=== PATIENT | female | born 1945 | race Caucasian/White ===

== ENCOUNTER 2024-06-05 23:25 | Inpatient (IN) | payer MEDICARE, SELFPAY ==
[2024-06-05 23:46] VITALS: BMI 24.0
[2024-06-06] VITALS (10 sets, daily range): BP systolic 125–151; BP diastolic 52–82; BMI 24.0
--- NOTE | 2024-06-06 | PTCARENOTE ---
received verbal report from Susan RN. Pt arrived to IMU from [facility]. Pt aaox3. AV paced on monitor. VSS. Heparin running at 1400u/hr. NS running at 75 mL/hr. admission assessment completed and pt oriented to unit (see worklist).
Pt resting in bed with call deshpande in reach.
--- NOTE | 2024-06-06 00:06 | HPS.HSE ---
Family Physician
-
Family Physician: NO INTERVIEW UNKNOWN
Chief Complaint
-
Transfer from [facility] secondary to NSTEMI, recent sepsis obstructing ureteral stent
History of Present Illness
79-year-old female transferred from [facility], where she underwent cardiac cath today 06/05 via right radial wrist by for NSTEMI type II ME with high sensitive troponin levels of 3850 on 05/29/2022 this cath was held off from
her admission on 05/29 due to severe sepsis from obstructing ureteral stent. She had echo showing grade 1 diastolic dysfunction with the entire apex abnormal per echo report. Her cath showed proximal LAD 75% occlusion mid 30 to 40%, circumflex 80
to 90% mid/distal, there is an old distal circumflex stent,the RCA there is distal 50, 60, 40% occlusion. They were unable to stent the mid and distal circumflex at the previous hospital. The patient denies chest pain shortness of breath dizziness
or diaphoresis at any point during her hospitalization. She currently denies any chest pain, palpitations, shortness breath, cough, fever, chills, headache, abdominal pain, nausea, vomiting, diarrhea. The patient tells me yesterday 06/04/2024 she
spiked a temperature of 101F oral and was given Tylenol. She has denied fevers since, although today 06/05/2024 her white count did spike to 14.5 per hospitals report it appears that her prior physicians might have been unaware of this single
temperature elevation on 06/04/2024 and it is not documented in daily. She has no new complaints however we will repeat CBC, blood cultures x 2, Hernandez cath urine and nephrostomy tube cultures. She was admitted there on 1123 severe sepsis growing
ESBL, E. coli secondary to an encrusted ureteral stent that was in place for 1 year. She required a left nephrostomy tube placement on 06/01 which urine culture grew Proteus Mirabella's that was pansensitive and her Zosyn was switched to ertapenem.
She was also evaluated by vascular surgery who recommended eventual fem- femoral bypass as an outpatient but to continue her current Pletal. She had labs 11:26 AM showing a hemoglobin of 9.2 I am not sure of her prior and an elevated WBC count
14.5 per
Rodrigo Doan's notes. She has past medical history of NSTEMI type II ME 05/31/2024, distal circumflex stent 7 years ago at [place], prior ureteral stent 2022 left-sided, ESBL, E. coli in urine from encrusted ureteral stent 05/29/2024, left
nephrostomy 06/01/2024 growing Proteus Mirabilis',, PAD was seen by vascular surgery recommended at some point fem-femoral bypass as outpatient, chronic neuropathy bilateral legs, hypertension, hyperlipidemia, pacemaker placed 2022 at [facility]ospital, cervical cancer with radiation 20 years ago SBO with colonic rupture requiring colostomy January 2022
Medical History
Past Medical History
Past Medical History: Reports Other
Additional Past Medical History:
NSTEMI type II ME 05/31/2024
CAD/distal circumflex stent 7 years ago at [place]
prior ureteral stent 2022 left-sided
ESBL, E. coli in urine from encrusted ureteral stent 05/29/2024
left nephrostomy 06/01/2024 placed due to obstructive prior ureteral stent growing Proteus Mirabilis
PAD was seen by vascular surgery recommended at some point fem-femoral bypass as outpatient
chronic neuropathy bilateral legs
hypertension
hyperlipidemia
pacemaker placed 2022 at [facility]
cervical cancer with radiation 20 years ago
SBO with colonic rupture requiring colostomy January 2022
Past Surgical History: Reports Other
Additional Past Surgical History:
[facility]
Tonsillectomy
Appendectomy
Small bowel obstruction with rupture requiring colostomy January 2022
Tubal ligation
Social History
Tobacco: Non-smoker
Alcohol: None
Drug: None
Personal:
Living: With Family
Family History
Family History: Other (Mother history of ME, hypertension, age 76, father age 80 history of CAD patient has no siblings)
Allergies / Home Medications
Allergies reflects when Allergies were last updated in [employer].
Home Medications with original date entered in [employer]
Allergy/Medication List:
Allergies
Allergy/AdvReac Type Severity Reaction Status Date / Time
No Known Allergies Allergy Unverified 06/06/24 00:06
Home Medications
acetaminophen 325 mg tablet 650 mg PO Q6H PRN mild pain/fever >100.4/SUTTON 06/05/24
aspirin 81 mg tablet,delayed release 81 mg PO DAILY 06/05/24
atorvastatin 80 mg tablet 80 mg PO HS 06/05/24
cilostazol 100 mg tablet 100 mg PO BID 06/05/24
clonidine 0.2 mg/24 hr weekly transdermal patch (Oesopudm-ABM-0) 0.2 mg transdermal QWEEK 06/05/24
collagenase clostridium histo. 250 unit/gram topical ointment (Santyl) 1 applic topical DAILY 06/05/24
ertapenem 1 gram solution for injection 1 g IM Q24H 06/05/24
gabapentin 100 mg capsule (Neurontin) 100 mg PO HS 06/05/24
heparin (porcine) 5,000 unit/mL injection syringe 5,000 unit SC Q12H 06/05/24
lisinopril 5 mg tablet 5 mg PO DAILY 06/05/24
metoprolol succinate 25 mg tablet,extended release 24 hr (Toprol XL) 25 mg PO DAILY 06/05/24
mirtazapine 15 mg tablet (Remeron) 7.5 mg PO DAILY 06/05/24
nifedipine 30 mg tablet,extended release 24 hr (Procardia XL) 30 mg PO DAILY 06/05/24
nifedipine 30 mg tablet,extended release 24 hr (Procardia XL) 30 mg PO DAILY 06/05/24
Review of Systems
-
History Source: Patient and Transfer Record
A 12 point ROS was completed and negative except as noted: Yes
Constitutional: Denies Fever, Fatigue or Chills
EENT: Denies Sore Throat, Mouth Swelling or Runny Nose
Respiratory: Denies Cough, Hemoptysis or Trouble Breathing
Cardiac: Denies Chest Pain, Diaphoresis, Palpitations or Syncope
Abdomen/GI: Reports Other (Colostomy present on admission); Denies Abdominal Pain, Nausea, Vomiting, Diarrhea, Constipated, Bloody Stools or Black Stools
: Reports Hernandez (Draining yellow in color) and Other (Left-sided nephrostomy tube draining thin pink in color)
Musculoskeletal: Denies Joint Pain or Edema
Skin: Denies Itching or Rash
Neurological: Denies Dizzy or Headache
Endocrine: Reports No Symptoms
Hematologic/Lymphatic: Reports No Symptoms
Psych: Reports Calm
Physical Exam
Vital Signs
Vital Signs
Temp
99.3 F
06/05/24 23:34
Physical Exam
General: Comfortable and Conversant; No Pain, Fever or Chills
HEENT: NormoCephalic, Anicteric, Moist mucous membranes, PERRLA, [place] Conjunctivae and No Ptosis
Respiratory: Clear; No Wheezes, Rales or Rhonchi
Cardiac: S1/S2, Regular Rhythm (Paced on monitor occasionally at bedside) and Other (Pacemaker present left upper chest wall); No Murmur, Rub, Gallop, Peripheral Edema or JVD
Breast: Deferred by me
GI: Soft, Non Tender, Non Distended, Normal Bowel Sounds and Other (Colostomy present)
Rectal: Deferred by Provider
Genito-urinary: Hernandez (Present on admission draining yellow in color) and Nephrostomy Tubes (Left-sided draining thin strawberry tinged in color)
Musculoskeletal: No Clubbing, No Cyanosis and No Edema
Skin: Warm, Dry and IV/Catheter Site (Right arm midline placed at [facility] on 06/03/2024 due to infiltration of saline and antibiotics right upper extremity and left upper extremity)
Neuro: AO x 3, No Motor Deficits, Cranial Nerves Intact and No Sensory Deficits; No Slurred Speech, Facial Droop, Tremors or Sedated
Psych: Calm
Data Reviewed
-
Lab Data: Labs Reviewed by me (From [facility])
Impression/Plan
-
Impression/plan:
Admit to IMU
#NSTEMI�type II ME on 05/31/2024
Hide high sensitive troponin 3850 on 05/31 at [facility]
-At that time was unable to undergo cardiac cath given her severe sepsis from pyelonephritis left side
-Patient was placed on IV heparin drip
-Cardiac cath on 1126 by via right wrist showed LAD�proximal 75% occlusion, mid 30, 40%, circumflex 80 to 90% mid and distal occlusion with old stent in the distal circumflex and RCA distal 50, 60, 40% occlusions the physician was unable
to place stent in the mid and distal aspects of the circumflex and patient was transferred to [place] for further management
-Continue IV heparin drip currently running at 14 units/h
-Consult Cardiology�CBC
-Monitor for any chest pain
-IV NSS 75 cc/h continue from prior
Check CBC, CMP in a.m.
-Trend troponin
-EKG in a.m.
2D echo
Echo at [facility] 06/05/2024 echo showing grade 1 diastolic dysfunction with the entire apex abnormal per echo report, reported preserved EF by hospital
#CAD
#History prior distal circumflex stent approximately 7 years ago [facility]
-Continue aspirin 81 mg daily, atorvastatin 80 mg at bedtime, Toprol XL 25 mg daily
#Acute leukocytosis
WBC 14.5 no shift currently afebrile on admission 06/05/2024
But reported temperature 101.F yesterday 06/04/2024 by patient
-Will repeat CBC along with blood cultures x 2, urine culture from Hernandez catheter and urine culture from nephrostomy tube
#Mild anemia per labs 06/04/2024
Hemoglobin 9.2 on 06/04/2024 at [facility]
-Will check CBC in a.m. will also obtain type and screen#
#Severe sepsis from ESBL, E. coli in urine/obstructive uropathy due to old encrusting ureteral stent stent left-sided from 1 year ago
Was admitted on 1120 [facility]
-Hernandez catheter was placed
-Patient was on IV Zosyn
#Obstructive uropathy due to encrusted left-sided ureteral stent 1-year-old
#Left nephrostomy tube was placed on 06/01 with cultures growing pansensitive Proteus Mirabilis
Antibiotics were changed from Zosyn to Ertapenem on 06/01 to run until 06/09 then consideration for oral antibiotics per infectious disease
-Left nephrostomy tube currently draining thin pink-tinged drainage
creat 0.9/bun 15 on 06/04/2024 at [facility]
-Consult infectious disease
#PAD
#Peripheral neuropathy
Patient was seen by vascular surgery was recommended she have eventual femorofemoral bypass but not urgent
-Continue gabapentin 300 mg at bedtime for her chronic neuropathy
-Continue Pletal 100 mg twice daily
#History of IV infiltration of saline and antibiotics left upper extremity right upper extremity at [facility]
#Midline was placed in right upper extremity 06/03
#HTN�benign
-Continue Catapres 0.2 mg patch transdermal weekly on Wednesdays
-Continue metoprolol XL 25 mg daily
-Continue Procardia XL 60 mg p.o. daily
#HLD
-Continue atorvastatin 80 mg at bedtime
Cholesterol panel on 05/31/2024 from [facility]
Total cholesterol 194
Glycerides 131
HDL 43, LDL 125
Cholesterol, non-HDL 151
#Cervical cancer with radiation 20 years ago
DVT prophylaxis
Continue IV heparin drip
Full code
--- NOTE | 2024-06-06 00:37 | W.PN.UPDATE ---
Update Note
Progress Note Update
Patient seen in conjunction with POT RELINER. I agree with her findings on history and physical. I concur with the assessment and plan unless stated otherwise.
Patient is a 79 y.o with h/o nephrolithiasis s/p stenting (L) 1 year ago, CAD s/p PCI to left circ, HTN presenting as transfer from [facility] for evaluation for likely total occlusion of left circumflex on attempted PCI there in setting
of NSTEMI. Patient presented to the [facility] on 05/29 with sepsis and was found to have pyelonephritis with obstruction/hydronephrosis on the left kidney. She was cultured and had medical resuscitation. Urology consulted. Patient also
found to have elevated troponin (> 3000 on sensitive scale) but was septic at the time and intervention was delayed. Urology evaluated patient, found old encrusted stent which they deferred removal in the septic setting. A left nephrostomy tube
was placed. Patient treated with abx (zosyn initially). Blood culture with strep dysgalactiae in one bottle, urine culture with ESBL E.coli and proteus. Nephrostomy tube grew senstivie proteus. Patient was transitioned to Ertapen. She was
medically managed on heparin initially for the NSTEMI, echo showed apical wall motion anomaly and when patient was stable enough, taken to cath-lab. L circumflex occlusion found but could not be intervened upon. CBC cardiology informed and patient
transferred for definitive management. Patient with known PAD evaluated by vascular for claudication, no intervention inpatient. See POT RELINER note for details of past medical and surgical histories.
On seeing patient today, she was awake, alert, oriented x 3 and in no acute distress. Denies ever having chest pains since her admission. She has a urinary catheter draining yellow urine and a left nephrostomy tube draining pink colored urine.
Lungs were clear, CV regular w/o r/m/g. No edema. Normal abdominal exam w/ colostomy bag.
1. CAD - Known CAD w/ prior PCI. Now with new L circ occlusion, transferred by cardiology for intervention as unable to provide definitive treatment at [facility]. Chest pain free on heparin gtt.
- imu admit
- continue aspirin statin
- continue heparin gtt
- trend troponin
- possibly going for procedure in the morning, npo except meds
- cardiology consult
2. ID - Pyelonephritis complicated by infected/encrusted old left ureteral stent s/p left nephrostomy tube placement. Blood culture strep dysgalactiae, Urine Cx ESBL E.coli/Proteus, Nephrostomy pansensitvie proteus. Initially on Zosyn and switched
to ertapenem.
- continue ertapenem till stop date of 06/09
- ID consult for further abx regimen
- blood cx, urine culture and nephrostomy tube cx
3. PAD -
- follow up with vascular as outpatient
- continue asa/statin/cilstazol
- gabapentin
4. Obstructive uropathy - encrusted stent s/p nephrostomy tube. Had GUILHERME now resolved
- maintain woods till ready for d/c. Can be removed once medically stable
- nephrostomy tube removal and management of old stent per outpatient urology follow up
- monitor i/o and renal function
5. HTN
- continue current lisinopril, nifedipine
DVT PPX - on heparin
Code status - full code
[2024-06-06] MEDS: NSS 1000 IV ×2 (01:35→14:18)
[2024-06-06 04:14] LABS: % Basophils 0.2 % (0-2); % Eosinophils 1.4 % (0-6); % Immature Granulocytes 1.9 % (0-0.5); % Lymphocytes 15.3 % (20.5-51.1); % Monocytes 7.1 % (1.7-9.3); % Neutrophils 74.1 % (42.2-75.2); Absolute Eosinophils 0.2 10^3/uL (0-0.7); Absolute Immature Granulocytes 0.2 10^3/uL (0-0.05); Absolute Lymphocytes 1.7 10^3/uL (1.2-3.4); Absolute Monocytes 0.8 10^3/uL (0.1-0.6); Absolute Neutrophils 8.3 10^3/uL (1.4-6.5); Hematocrit 30.9 % (37.0-47.0); Hemoglobin 9.8 g/dL (12.0-16.0); Mean Corp Hgb Conc. 31.7 g/dL (33.0-37.0); Mean Corpuscular Hgb 28.7 pg (27.0-31.0); Mean Corpuscular Volume 90.6 fL (81.0-99.0); Mean Platelet Volume 9.6 fL (7.4-10.4); Nucleated Red Blood Cells % 0 %; Platelet Count 206 10^3/uL (130-400); Red Blood Cell Count 3.41 10^6/uL (4.20-5.40); Red Cell Dist. Width 14.7 % (11.5-14.5); White Blood Cell Count 11.3 10^3/uL (4.8-10.8)
[2024-06-06 04:41] LABS: APTT > 200 Sec (23.4-35.0)
[2024-06-06 04:45] LABS: Troponin I 0.064 ng/ml
[2024-06-06 05:26] LABS: ALT (SGPT) 21 U/L (0-35); AST (SGOT) 28 U/L (14-36); Albumin 2.8 g/dl (3.5-5.0); Alkaline Phosphatase 40 U/L (38-126); Blood Urea Nitrogen 11 mg/dl (7-17); Calcium 8.2 mg/dl (8.4-10.2); Carbon Dioxide 24 mmol/L (22-30); Chloride 106 mmol/L (98-107); Estimated Creatinine Clearance 64 ml/min; Glucose 105 mg/dl (70-99); HDL Cholesterol 40 mg/dl; LDL Cholesterol, Calculated 84 mg/dl; Potassium 4.2 mmol/L (3.5-5.1); Sodium 139 mmol/L (135-145); Total Bilirubin 0.5 mg/dl (0.2-1.3); Total Cholesterol 151 mg/dl (50-199); Total Protein 6.1 g/dl (6.3-8.2); Triglyceride 138 mg/dl (10-149); Very Low Density Lipoprotein 27 mg/dl (0-30); eGFR > 60.00
--- NOTE | 2024-06-06 06:31 | CON.CAR ---
Consultation
Consultation Request
Date/Time Consultation Requested: 06/06/2024
Date/Time Consultation Performed: 06/06/2024 630
Requesting Provider: Hospitalist
Performing Provider: Dr. Archuleta
Reason for Consultation: Coronary artery disease recent and NSTEMI
Medical History
-
History of Present Illness:
Patient presents as transfer from [facility] onto the hospitalist service
79-year-old male patient has a history of coronary artery disease left circumflex stent, pacemaker, encrusted ureteral stent, peripheral arterial disease (femorofemoral bypass), hypertension, hypercholesterolemia, colostomy who was admitted to [facility] with sepsis/urosepsis, (bc positive for strep dysgalactiae ? contaminent and urine polymicrobial ESBL, ecoli and proteus,)bacteremia but did not grow in urine, , left nephrostomy tube placement 06/01/2024. She had a NSTEMI and under
ultimately underwent a cardiac catheterization by Dr. Pedro. Patient was felt to have type II NJ and was noted to have new wall motion abnormality. Full echo report not available but some notes suggest that apex appeared abnormal. Cardiac
catheterization showed LAD moderate to severe calcification 75% left circumflex moderate to severe calcification 80 to 90% mid to distal. Previous distal circumflex stent 20-30% ISR, RCA 50 and 60% stenoses unsuccessful attempted PCI to the mid to
distal circumflex. Unable to cross with balloon by report small dissection was noted which was felt to be stable. Patient transferred for additional management.
Patient denies ever having chest pain during admission no complaints of shortness of breath patient is comfortable without current complaints.
Right radial cath site feels fine. She has PAD and had revascularization surgery approximately 8 months ago
Past medical history
Pacemaker
Left circumflex stenting
Ureteral stent
Left nephrostomy
PAD. prior revascularization surgery about 8 months ago per her report ( suspect fem-fem bypass)
Neuropathy
Hypertension
Hypercholesterolemia
cervical cancer with previous radiation
SBO a colonic rupture requiring colostomy 2021
Past Medical History
Past Medical History: Other (As noted)
Allergies / Home Medications
Allergy/AdvReac Type Severity Reaction Status Date / Time
No Known Allergies Allergy Unverified 06/06/24 00:06
�Medication �Instructions �Recorded �Confirmed �Type
acetaminophen 325 mg tablet 650 mg PO Q6H PRN mild pain/fever 06/05/24 06/06/24 History
>100.4/SUTTON
aspirin 81 mg tablet,delayed 81 mg PO DAILY 06/05/24 06/06/24 History
release
atorvastatin 80 mg tablet 80 mg PO HS 06/05/24 06/06/24 History
cilostazol 100 mg tablet 100 mg PO BID 06/05/24 06/06/24 History
clonidine 0.2 mg/24 hr weekly 0.2 mg transdermal QWEEK 06/05/24 06/06/24 History
transdermal patch (Enofcalk-WXR-3)
collagenase clostridium histo. 250 1 applic topical DAILY 06/05/24 06/06/24 History
unit/gram topical ointment (Santyl)
ertapenem 1 gram solution for 1 g IM Q24H 06/05/24 06/06/24 History
injection
gabapentin 100 mg capsule 100 mg PO HS 06/05/24 06/06/24 History
(Neurontin)
heparin (porcine) 5,000 unit/mL 5,000 unit SC Q12H 06/05/24 06/06/24 History
injection syringe
lisinopril 5 mg tablet 5 mg PO DAILY 06/05/24 06/06/24 History
metoprolol succinate 25 mg 25 mg PO DAILY 06/05/24 06/06/24 History
tablet,extended release 24 hr
(Toprol XL)
mirtazapine 15 mg tablet (Remeron) 7.5 mg PO DAILY 06/05/24 06/06/24 History
nifedipine 30 mg tablet,extended 30 mg PO DAILY 06/05/24 06/06/24 History
release 24 hr (Procardia XL)
nifedipine 30 mg tablet,extended 30 mg PO DAILY 06/05/24 06/06/24 History
release 24 hr (Procardia XL)
Review of Systems
-
All other systems: Negative unless noted
Physical Exam
Vital Signs
Temp Pulse Resp BP Pulse Ox
98.7 F 79 18 128/77 94
06/06/24 04:05 06/06/24 04:05 06/06/24 04:05 06/06/24 04:05 06/06/24 04:05
Lab Results
06/06/24 03:59
06/06/24 03:59
Troponin I 0.064 ng/ml H* 06/06/24 03:59
Physical Exam
General: No Apparent Distress
HEENT: Normocephalic, Anicteric and Other (PEERL EOMI)
Respiratory: Other (No wheezes rales or rhonchi)
Cardiac: Regular Rhythm and Murmur (none)
GI: Non Tender, Normal Bowel Sounds and Other (Colostomy. No mass)
Musculoskeletal: No Clubbing, No Cyanosis, No Edema and Other (bilat femoral area scars from prior surgery )
Skin: Warm and Other (No rashes noted, left foot with dressing onwhat patient reports as chronic wound, nonhealing)
Neuro: Awake, Alert and Oriented
Psych: Other (Radial cath site fine)
Impression / Plan
-
Coronary artery disease/NSTEMI
-Distant history of left circumflex stenting
-NSTEMI during recent hospitalization at [facility]
-Cardiac catheterization 06/05/2024 with multivessel coronary artery disease as noted above with culprit lesion suspected to be left circumflex. Unsuccessful attempted PCI of left circumflex
-Continue medical therapy including aspirin,
-Interventional cardiology will determine best course of treatment. Patient will be assessed by interventional cardiology. Assessment for possible complex PCI. In meantime would continue with medical therapy which includes aspirin and heparin.
Currently not on DAPT
.
Hypercholesterolemia high intensity statin
Hypertension. Stable continue current therapy
Left nephrostomy.. Patient patient with history of ureteral stent.. Recent admission with sepsis. Now with nephrostomy. Additional management as directed by primary team
.
pacemaker
PAD
Colostomy
Data Reviewed
-
EKG: Report Reviewed by me
Radiology: Report Reviewed by me
Medical Tests (Nuc Med, Echo etc): Report Reviewed by me
Labs: Labs Reviewed by me
--- NOTE | 2024-06-06 08:27 | W.PN.HOSP.TC ---
Today's Communication/Plan
-
Resume diet
Continue antibiotics
ID consult
PT/OT
Wound care
Assessment / Plan
Assessment / Plan
Gen-AAOx3, NAD
HEENT-NC, AT, anicteric, clear oral mm
Neck-supple
CV-reg, no M, +S1/S2
Lungs-clear B/L
Abd-soft, NT, ND
Ext-no edema
Musculoskeletal-no cyanosis, clubbing, left foot dressing
Skin-warm and dry
Neuro-grossly non-focal
Psych-calm, cooperative
NSTEMI/CAD -history of left circumflex stenting. Admitted to [facility] May 29 for sepsis, UTI. Found to have an acute CO. Underwent cardiac catheterization 06/05 for multivessel CAD. Culprit lesion suspected to be left
circumflex. Attempt at PCI but unsuccessful. Small dissection noted by report. Subsequently transferred to [facility] for further intervention by Dr. Ballesteros. Discussed case with Dr. Archuleta this morning, okay to resume diet pending
cardiology decision on further intervention including possible rotational atherectomy.
Sepsis due to UTI/pyelonephritis -underwent nephrostomy tube placement at [facility]. Source of sepsis likely due to encrusted left ureteral stent, which was originally placed 2 years ago in [facility]. Lost to follow-up by
urology. Her urologist is located in [facility]. She plans to her urologist after discharge for stent removal. Currently on IV ertapenem. Infectious disease consulted. Blood culture and [facility] positive for strep and
dysgalactiae, urine culture ESBL E. coli/Proteus. Nephrostomy culture showed pansensitive Proteus.
Still has Hernandez catheter in place.
Essential hypertension -stable.
Hyperlipidemia -continue atorvastatin.
Normocytic anemia -unknown acuity, etiology. Hemoglobin 9.8, monitor for now.
PAD -underwent lower extremity revascularization about 8 months ago with subsequent left foot wound. Consult wound care.
PPM
Colostomy
Full code
Consult PT/OT
Anticipated Discharge: > 48 hours
Subjective/Interval History
-
Date of Service: June 06, 2024
Patient seen and examined. No complaints. Asking for ice water.
Objective Data
-
Labs:
Laboratory Results
06/06/24 06/06/24
03:59 12:45
WBC 11.3 H
Hgb 9.8 L
Hct 30.9 L
Plt Count 206
APTT > 200 H* Pending
Sodium 139
Potassium 4.2
Chloride 106
Carbon Dioxide 24
BUN 11
Creatinine 0.7
Glucose 105 H
Calcium 8.2 L
Total Bilirubin 0.5
AST 28
ALT 21
Alkaline Phosphatase 40
Vital Signs:
Vital Signs
Temp Pulse Resp BP Pulse Ox
98.2 F 74 17 146/69 94
06/06/24 07:49 06/06/24 06:00 06/06/24 06:00 06/06/24 06:00 06/06/24 06:00
I&O
06/05/24 06/06/24 06/07/24
06:59 06:59 06:59
Output Total 850 / 850
Balance -850 / -850
Review of Systems
-
History Source: Patient
All other systems: Reviewed and negative
[2024-06-06] MEDS: ASPIR LOW (ENTERIC COATED) 81 MG PO (08:52)
[2024-06-06] MEDS: PROCARDIA XL (EXTENDED RELEASE) 30 MG PO (08:52)
[2024-06-06] MEDS: PLETAL 100 MG PO ×2 (08:52→20:12)
[2024-06-06] MEDS: TOPROL XL 25 MG PO (08:53)
[2024-06-06] MEDS: ZESTRIL 5 MG PO (08:53)
[2024-06-06] MEDS: REMERON 7.5 MG PO (08:53)
[2024-06-06] MEDS: SANTYL OINTMENT TOPICAL (11:13)
[2024-06-06] MEDS: INVANZ 60 MG IV (11:13)
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
[2024-06-06] MEDS: HEPARIN 25000 UNITS/250 ML IV (14:18)
--- NOTE | 2024-06-06 14:21 | CM ---
CM consult placed. It was for advanced directives. CM introduced self and role. CM confirmed that patient had indeed asked for advanced directive information. CM went over packet and explained one portion is life decision making and one part was to
appoint a specific person to be her advocate if she is not able make her own decisions. Patient verbalized understanding and was handed the packet.
CM encouraged patient to read the first page, which contained very important information in layman's terms.
[2024-06-06 14:57] LABS: APTT 150.7 Sec (23.4-35.0)
[2024-06-06] MEDS: LIPITOR 80 MG PO (20:12)
[2024-06-06] MEDS: NEURONTIN 100 MG PO (20:12)
[2024-06-06 20:24] LABS: Hepatitis C Antibody Negative (Negative)
[2024-06-06 22:23] LABS: APTT 102.9 Sec (23.4-35.0)
[2024-06-07] VITALS (15 sets, daily range): BP systolic 131–151; BP diastolic 52–82; PULSE 91; O2SAT 96; BMI 23.6
[2024-06-07] MEDS: NSS 1000 IV (02:48)
[2024-06-07 05:05] LABS: % Basophils 0.2 % (0-2); % Eosinophils 2.1 % (0-6); % Immature Granulocytes 1.7 % (0-0.5); % Lymphocytes 15.6 % (20.5-51.1); % Monocytes 6.8 % (1.7-9.3); % Neutrophils 73.6 % (42.2-75.2); Absolute Eosinophils 0.2 10^3/uL (0-0.7); Absolute Immature Granulocytes 0.2 10^3/uL (0-0.05); Absolute Lymphocytes 1.5 10^3/uL (1.2-3.4); Absolute Monocytes 0.7 10^3/uL (0.1-0.6); Absolute Neutrophils 7.3 10^3/uL (1.4-6.5); Hematocrit 26.6 % (37.0-47.0); Hemoglobin 8.5 g/dL (12.0-16.0); Mean Corpuscular Volume 90.8 fL (81.0-99.0); Mean Platelet Volume 9.3 fL (7.4-10.4); Nucleated Red Blood Cells % 0 %; Platelet Count 226 10^3/uL (130-400); Red Blood Cell Count 2.93 10^6/uL (4.20-5.40); Red Cell Dist. Width 14.5 % (11.5-14.5); White Blood Cell Count 9.9 10^3/uL (4.8-10.8)
[2024-06-07 05:28] LABS: Blood Urea Nitrogen 14 mg/dl (7-17); Estimated Creatinine Clearance 56 ml/min; Glucose 107 mg/dl (70-99)
[2024-06-07 05:29] LABS: ALT (SGPT) 21 U/L (0-35); AST (SGOT) 23 U/L (14-36); Albumin 2.3 g/dl (3.5-5.0); Alkaline Phosphatase 39 U/L (38-126); Calcium 7.8 mg/dl (8.4-10.2); Carbon Dioxide 25 mmol/L (22-30); Chloride 109 mmol/L (98-107); Potassium 3.8 mmol/L (3.5-5.1); Sodium 139 mmol/L (135-145); Total Bilirubin 0.3 mg/dl (0.2-1.3); Total Protein 5.3 g/dl (6.3-8.2); eGFR > 60.00
--- NOTE | 2024-06-07 08:10 | W.PN.HOSP.TC ---
Today's Communication/Plan
-
Stop IV fluids
PT/OT
Await cardiology input
Assessment / Plan
Assessment / Plan
Gen-AAOx3, NAD
HEENT-NC, AT, anicteric, clear oral mm
Neck-supple
CV-reg, no M, +S1/S2
Lungs-clear B/L
Abd-soft, NT, ND
Ext-no edema
Musculoskeletal-no cyanosis, clubbing, left foot dressing
Skin-warm and dry
Neuro-grossly non-focal
Psych-calm, cooperative
NSTEMI/CAD -history of left circumflex stenting. Admitted to [facility] May 29 for sepsis, UTI. Found to have an acute RI. Underwent cardiac catheterization 06/05 for multivessel CAD. Culprit lesion suspected to be left
circumflex. Attempt at PCI but unsuccessful. Small dissection noted by report. Subsequently transferred to [facility] for further intervention by Dr. Ballesteros. Plan of care pending cardiology decision on further intervention including
possible rotational atherectomy.
Sepsis due to UTI/pyelonephritis -underwent nephrostomy tube placement at [facility]. Source of sepsis likely due to encrusted left ureteral stent, which was originally placed 2 years ago in [facility]. Lost to follow-up by
urology. Her urologist is located in [facility]. She plans to her urologist after discharge for stent removal, appointment scheduled for this Monday, will likely need to reschedule.. Currently on IV ertapenem. Infectious disease
consulted. Blood culture and [facility] positive for strep and dysgalactiae, urine culture ESBL E. coli/Proteus. Nephrostomy culture showed pansensitive Proteus.
Still has Hernandez catheter in place.
Essential hypertension -stable.
Hyperlipidemia -continue atorvastatin.
Normocytic anemia -unknown acuity, etiology. Hemoglobin trending down, 8.5 today. No evidence of bleeding. Monitor hemoglobin. Stools are brown.
PAD -underwent lower extremity revascularization about 8 months ago with subsequent left foot wound. Consult wound care.
PPM
Colostomy
Full code
Consult PT/OT
Stop IV fluids.
Anticipated Discharge: > 48 hours
Subjective/Interval History
-
Date of Service: June 07, 2024
Patient seen and examined. No complaints.
Objective Data
-
Labs:
Laboratory Results
06/06/24 06/07/24 06/07/24
22:05 04:46 11:40
WBC 9.9
Hgb 8.5 L
Hct 26.6 L
Plt Count 226
APTT 102.9 H 129.0 H Pending
Sodium 139
Potassium 3.8
Chloride 109 H
Carbon Dioxide 25
BUN 14
Creatinine 0.8
Glucose 107 H
Calcium 7.8 L
Total Bilirubin 0.3
AST 23
ALT 21
Alkaline Phosphatase 39
Vital Signs:
Vital Signs
Temp Pulse Resp BP Pulse Ox
97.6 F 85 8 140/67 94
06/07/24 03:21 06/07/24 06:00 06/07/24 06:00 06/07/24 06:00 06/07/24 06:00
I&O
06/06/24 06/07/24 06/08/24
06:59 06:59 06:59
Intake Total 900 / 900
Output Total 850 / 850 1100 / 1100
Balance -850 / -850 -200 / -200
Review of Systems
-
History Source: Patient
All other systems: Reviewed and negative
[2024-06-07] MEDS: PLETAL 100 MG PO ×2 (09:41→20:02)
[2024-06-07] MEDS: ZESTRIL 5 MG PO (09:41)
[2024-06-07] MEDS: PROCARDIA XL (EXTENDED RELEASE) 30 MG PO (09:41)
[2024-06-07] MEDS: REMERON 7.5 MG PO (09:42)
[2024-06-07] MEDS: ASPIR LOW (ENTERIC COATED) 81 MG PO (09:43)
[2024-06-07] MEDS: SANTYL OINTMENT 1 APPLIC TOPICAL (09:43)
[2024-06-07] MEDS: TOPROL XL 25 MG PO (09:43)
[2024-06-07] MEDS: INVANZ 60 MG IV (09:54)
--- NOTE | 2024-06-07 10:38 | W.PN.ID1 ---
Date of Service
Date of Service: June 07, 2024
Today's Communication
- close follow up with her urologist - has an appointment already scheduled for monday - for now I have advised her to discuss with cardiology, I suspect she may be able to make this appointment pending cardiology input
Assessment / Plan
Pyelonephritis and Complicated UTI due to ESBL E coli and Proteus
Strep Dysgalactiae bacteremia - not sustained
Encrusted L ureteral stent; s/p nephrostomy tube placement
GUILHERME - resolved
Pacemaker
Colostomy
- blood cultures x2 no growth to date
- agree with ertapenem, eventual transition to oral bactrim planned would continue through 06/16
- no objection to surgical procedures from ID perspective; would consider her to be low risk for infectious complications
- close follow up with her urologist - has an appointment already scheduled for monday - for now I have advised her to discuss with cardiology, I suspect she may be able to make this appointment pending cardiology input
Chief Complaint
-: UTI
Subjective / Review of Systems
afebrile
bp stable
tolerating current abx
Vital Signs / Physical Exam
Vital Signs
Vital Signs
Temp Pulse Resp BP Pulse Ox
98.3 F 100 8 141/81 94
06/07/24 07:15 06/07/24 09:43 06/07/24 06:00 06/07/24 09:43 06/07/24 06:00
Physical Exam
Constitutional: No Acute Distress
Cardiovascular: Regular Rate
Pulmonary: Symmetric and Non Labored
Gastrointestinal: Non Distended
Skin: Dry; Negative Rash or Jaundice
Neurological: Awake
Psychological: Calm
Objective Data
Lab Data
Lab Results
06/07/24 04:46
06/07/24 04:46
APTT 129.0 Sec (23.4-35.0) H 06/07/24 04:46
Estimated Creat Clear 56 ml/min 06/07/24 04:46
Total Bilirubin 0.3 mg/dl (0.2-1.3) 06/07/24 04:46
AST 23 U/L (14-36) 06/07/24 04:46
ALT 21 U/L (0-35) 06/07/24 04:46
Alkaline Phosphatase 39 U/L (38-126) 06/07/24 04:46
Most recent labs reviewed.
Micro Results:
06/06/24 01:38 MRSA Screen - Final
Nose No Methicillin Resistant Staphylococcus aureus isolated.
06/06/24 03:58 Blood Culture - Preliminary
Blood/Venous No Growth in 24 hours- Final report to follow
06/06/24 14:20 Blood Culture - Pending
Blood/Venous
--- NOTE | 2024-06-07 11:28 | WOUNDNOTE ---
[facility] RN note: Patient admitted with sepsis secondary to UTI and pyelonephritis, NSTEMI
See H&P for complete history.
PMH: Left Achilles wound for over 1 year, per patient report. She thinks she obtained wound from a shoe. Patient follows with construction checker at [facility] weekly. Patient has PAD and underwent a lower extremity revascularization 8 months ago at
[facility]. Patient also has a history of colostomy, HTN, and anemia.
Wound Location and type/assessment: Patient admitted with left Achilles wound and left foot dorsal wound. Patient has VN services from and wears an open back shoe for off-loading of Achilles. The Achilles wound is pink, moist and hypergranular.
This RN suggested applying alginate to wound but patient would like to continue with the Santyl as ordered by her [employer] D[employer] Helper for both wounds. The dorsal foot wound is pink and shallow. She is not sure how she obtained this wound but said it was
'newer.' She explained that every other treatment that has been tried tends to worsen wound and Santyl helps both wounds remain stable. Patient also admitted with stage 1 PI and reports sitting alot at home. She ambulates with rolling walker at
home. Right heel intact.
Appetite: Fair
Pressure redistribution devices in place: Centrella Max Air, air cushion in chair. Off-load heels with air cushion or pillow under calf when in bed.
Plan: Local wound care provided to left Achilles and left dorsal foot wound as ordered. Air cushion applied to chair. SHALOM Irwin will apply sacral silicone border foam to sacrum. Instructed patient to use air or gel cushion at home to off-load
sacrum. Patient instructed to change position and stand and ambulate to protect sacrum at home. . Will confirm orders with hospitalist and update nurse. Updated care plan and will follow as needed.
Note to case management of equipment requested for discharge:
Recommend follow up at wound care center upon discharge.
[2024-06-07] MEDS: VISBIOME 2 CAP PO (11:49)
--- NOTE | 2024-06-07 12:01 | W.PN.CD ---
Today's Communication / Plan
-
continue medical therapy
update EF on echo
npo p midnight Monday
monitor hgb
cautiously continue hep gtt
Impression / Plan
-
Coronary artery disease/NSTEMI
-Distant history of left circumflex stenting
-NSTEMI during recent hospitalization at [facility]
-Cardiac catheterization 06/05/2024 with multivessel coronary artery disease as noted above with culprit lesion suspected to be left circumflex. Unsuccessful attempted PCI of left circumflex
-Interventional cardiology planning for complex PCI on Monday. In meantime would continue with medical therapy which includes aspirin, heparin, beta-gareth and DORA inhibitor. Currently not on DAPT.
-Will update focus echo study of EF given complication during procedure.
Anemia: On heparin drip, will need to monitor intensively. Recent catheterization was done from the right radial artery. This is well-healed. She denies any signs or symptoms of active bleeding.
-Monitor closely given heparin drip, workup per medicine
.
Hypercholesterolemia high intensity statin
Hypertension. Stable continue current therapy
Left nephrostomy.. Patient patient with history of ureteral stent.. Recent admission with sepsis. Now with nephrostomy. Additional management as directed by primary team
.
pacemaker
PAD-bilateral femoral bypasses. Continue cilostazol
Colostomy
Echo report from 05/31/2024 hypokinetic apex, EF 50-55%, RV normal size and function,
Physical Exam
Vital Signs/Labs
Vital Signs
Temp Pulse Resp BP Pulse Ox
98.3 F 100 8 141/81 94
06/07/24 07:15 06/07/24 09:43 06/07/24 06:00 06/07/24 09:43 06/07/24 06:00
06/06/24 06/07/24 06/08/24
06:59 06:59 06:59
Actual Weight 69.4 kg 68.4 kg
06/07/24 04:46
06/07/24 04:46
APTT 129.0 Sec (23.4-35.0) H 06/07/24 04:46
Triglycerides 138 mg/dl (10-149) 06/06/24 03:59
LDL Cholesterol, Calc 84 mg/dl 06/06/24 03:59
VLDL Cholesterol, Calc 27 mg/dl (0-30) 06/06/24 03:59
HDL Cholesterol 40 mg/dl 06/06/24 03:59
LAB Results
06/06/24
03:59
Troponin I 0.064 H*
Physical Exam
Constitutional: No acute distress
Cardiovascular: Rhythm & rate is regular, Pedal edema is absent, JVD pressure is normal, Systolic murmur absent and Rhythm/rate is irregular
Respiratory: Respiratory effort normal, Lungs clear to auscul., Wheeze Absent, Crackles Absent and Rhonchi Absent
Other: Cath Site (RRA site well healed, no hematoma, normal cap refill)
Data Reviewed
-
Date of Service: June 07, 2024
EKG: Other (tele sinus pvcs)
--- NOTE | 2024-06-07 12:19 | WOUNDNOTE ---
LEFT ACHILLES WOUND
--- NOTE | 2024-06-07 12:20 | WOUNDNOTE ---
LEFT DORSAL FOOT
[2024-06-07 13:10] LABS: APTT 170.1 Sec (23.4-35.0)
--- NOTE | 2024-06-07 13:23 | PTCARENOTE ---
Assumed care of patient this morning. She is aaox3. Pt has a left nephrostomy tube that is draining blood tinged urine, site dressing changed. Pt has a colostomy, emptied this morning, stool is soft. Wound care on left foot was performed by wound
care. Pt has Heparin infusing into R PICC. Assessment, care and VS as charted.
--- NOTE | 2024-06-07 15:00 | CM ---
Addendum entered by Paty Vang RN 06/07/24 15:13:
inquired about paratransit services in [facility]- advised him to go online and apply.
Original Note:
Patient from [facility] with Hx colostomy, left foot wound, reent PR/cath/PCI & nephrostomy tube. Room air. Receiving IV Abx, Heparin gtt. Seen by wound care nurse. PT Eval; requires assist of 2, unsteady on feet, recommend skilled
rehab. OT recommends HH.
Spoke with patient's Enrique;
the patient resides with her in a 2 story house with 1 AIDAN.
The patient was independent in ADLs and ambulation using her RW.
The patient does her own colostomy care and assists with wound care to her juan carlos, and her medications.
DME - RW, w/c, ostomy supplies
Current with [facility] for SN for wound care
Prior SNF in [facility], can't remember name
PCP - can't remember name
Pharmacy - [facility] [id number] [facility] [place] [facility]
Discussed patient's current functional mobility as per PT/OT; would like to wait to decided on SNF vs home with resumption of [facility]. He is hoping she will be able to return home at d/c.
Plan follow patient's mobilty and follow up with patient/ re; SNF vs HH.
[2024-06-07] MEDS: NEURONTIN 100 MG PO (20:02)
[2024-06-07] MEDS: LIPITOR 80 MG PO (20:02)
[2024-06-08] VITALS (23 sets, daily range): BP systolic 126–174; BP diastolic 69–109; BMI 24.0
[2024-06-08] MEDS: HEPARIN 25000 UNITS/250 ML IV (00:21)
[2024-06-08 03:21] LABS: % Basophils 0.2 % (0-2); % Eosinophils 2.4 % (0-6); % Immature Granulocytes 1.5 % (0-0.5); % Lymphocytes 18.8 % (20.5-51.1); % Monocytes 7.8 % (1.7-9.3); % Neutrophils 69.3 % (42.2-75.2); Absolute Eosinophils 0.2 10^3/uL (0-0.7); Absolute Immature Granulocytes 0.1 10^3/uL (0-0.05); Absolute Lymphocytes 1.7 10^3/uL (1.2-3.4); Absolute Monocytes 0.7 10^3/uL (0.1-0.6); Absolute Neutrophils 6.3 10^3/uL (1.4-6.5); Hematocrit 25.6 % (37.0-47.0); Hemoglobin 8.2 g/dL (12.0-16.0); Mean Corpuscular Hgb 28.8 pg (27.0-31.0); Mean Corpuscular Volume 89.8 fL (81.0-99.0); Mean Platelet Volume 9.3 fL (7.4-10.4); Nucleated Red Blood Cells % 0 %; Platelet Count 221 10^3/uL (130-400); Red Blood Cell Count 2.85 10^6/uL (4.20-5.40); Red Cell Dist. Width 14.2 % (11.5-14.5); White Blood Cell Count 9.1 10^3/uL (4.8-10.8)
[2024-06-08 03:50] LABS: APTT 86.9 Sec (23.4-35.0)
--- NOTE | 2024-06-08 05:29 | PTCARENOTE ---
No acute events overnight. Remains on heparin gtt at 900 units/hr. Therapeutic PTT x1. Next PTT at 1000. L nephrostomy tube with 500 clear yellow output this shift.
--- NOTE | 2024-06-08 07:26 | W.PN.CD ---
Today's Communication / Plan
-
Continue to monitor hemoglobin closely and monitor need for PRBC.
Continue aspirin and heparin. If patient goes for planned PCI then we will likely add Plavix or Brilinta but will hold for now and monitor hemoglobin
Impression / Plan
-
Coronary artery disease/NSTEMI
-Distant history of left circumflex stenting
-NSTEMI during recent hospitalization at [facility]
-Cardiac catheterization 06/05/2024 with multivessel coronary artery disease as noted above with culprit lesion suspected to be left circumflex. Unsuccessful attempted PCI of left circumflex
-Interventional cardiology planning for complex PCI on Monday. In meantime would continue with medical therapy which includes aspirin, heparin, beta-gareth and DORA inhibitor. Currently not on DAPT.
-Updated echo 06/07/2024 with normal left ventricular function EF greater than 75% no significant valvular disease
Anemia: On heparin drip, will need to monitor intensively. Recent catheterization was done from the right radial artery. This is well-healed. She denies any signs or symptoms of active bleeding.
-Monitor closely given heparin drip, workup per medicine
-Hemoglobin down to 8.2 monitor closely will continue to assess need for PRBC.
-If patient goes for intervention on Monday will need dual antiplatelet therapy. But will hold off on adding DAPT currently and continue to monitor hemoglobin.
.
Hypercholesterolemia high intensity statin
Hypertension. Stable continue current therapy
Left nephrostomy.. Patient patient with history of ureteral stent.. Recent admission with sepsis. Now with nephrostomy. Additional management as directed by primary team
.
pacemaker
PAD-bilateral femoral bypasses. Continue cilostazol
Colostomy
Echo report from 05/31/2024 hypokinetic apex, EF 50-55%, RV normal size and function,
Physical Exam
Vital Signs/Labs
Vital Signs
Temp Pulse Resp BP Pulse Ox
98.4 F 86 16 157/81 96
06/08/24 03:19 06/08/24 06:00 06/08/24 06:00 06/08/24 06:00 06/08/24 06:00
06/07/24 06/08/24 06/09/24
06:59 06:59 06:59
Actual Weight 68.4 kg 69.513 kg
06/08/24 03:07
06/07/24 04:46
APTT 86.9 Sec (23.4-35.0) H 06/08/24 03:07
Triglycerides 138 mg/dl (10-149) 06/06/24 03:59
LDL Cholesterol, Calc 84 mg/dl 06/06/24 03:59
VLDL Cholesterol, Calc 27 mg/dl (0-30) 06/06/24 03:59
HDL Cholesterol 40 mg/dl 06/06/24 03:59
LAB Results
06/06/24
03:59
Troponin I 0.064 H*
Physical Exam
Constitutional: No acute distress
Cardiovascular: Rhythm & rate is regular
Respiratory: Wheeze Absent and Rhonchi Absent
GI: Soft
Neuro/Psych: Alert
Data Reviewed
-
Date of Service: June 08, 2024
Medical Decision Making: Reviewed Test Results
Echo: Report Reviewed by me
Medical Tests (PFT, Pathology etc): Report Reviewed by me
Labs: Labs Reviewed by me
--- NOTE | 2024-06-08 08:22 | W.PN.HOSP.TC ---
Today's Communication/Plan
-
Monitor hemoglobin
Tamsulosin
Assessment / Plan
Assessment / Plan
Gen-AAOx3, NAD
HEENT-NC, AT, anicteric, clear oral mm
Neck-supple
CV-reg, no M, +S1/S2
Lungs-clear B/L
Abd-soft, NT, ND
Ext-no edema
Musculoskeletal-no cyanosis, clubbing, left foot dressing
Skin-warm and dry
Neuro-grossly non-focal
Psych-calm, cooperative
NSTEMI/CAD -history of left circumflex stenting. Admitted to [facility] May 29 for sepsis, UTI. Found to have an acute DC. Underwent cardiac catheterization 06/05 for multivessel CAD. Culprit lesion suspected to be left
circumflex. Attempt at PCI but unsuccessful. Small dissection noted by report. Subsequently transferred to [facility] for further intervention by Dr. Ballesteros. Plan for cardiac catheterization on Monday as per cardiology in order to allow
time for dissection to heal. Heparin drip per cardiology.
Sepsis due to UTI/pyelonephritis -underwent nephrostomy tube placement at [facility]. Source of sepsis likely due to encrusted left ureteral stent, which was originally placed 2 years ago in [facility]. Lost to follow-up by
urology. Her urologist is located in [facility]. She plans to her urologist after discharge for stent removal, appointment scheduled for this Monday, will likely need to reschedule.. Currently on IV ertapenem. Infectious disease
consulted. Blood culture and [facility] positive for strep and dysgalactiae, urine culture ESBL E. coli/Proteus. Nephrostomy culture showed pansensitive Proteus.
Blood cultures here are negative so far.
Hernandez removed 06/07, last bladder scan 219 cc. Bowels are moving. Add tamsulosin.
Essential hypertension -stable.
Hyperlipidemia -continue atorvastatin.
Acute on chronic normocytic anemia -unknown etiology. Hemoglobin averaged 10 in [facility], 9.8 on admission here, down to 8.2 today. No evidence of bleeding. Monitor hemoglobin. Stools are brown. Will transfuse if hemoglobin drops
below 8 given coronary disease. Patient states she was transfused about 8 months ago in [facility].
Records from [facility] reviewed.
PAD -underwent lower extremity revascularization about 8 months ago with subsequent left foot wound. Consult wound care.
Metastatic cervical cancer -details unknown.
PPM
Colostomy
Full code
Anticipated Discharge: > 48 hours
Subjective/Interval History
-
Date of Service: June 08, 2024
Patient seen and examined. No complaints.
Objective Data
-
Labs:
Laboratory Results
06/07/24 06/08/24 06/08/24
20:14 03:07 10:00
WBC 9.1
Hgb 8.2 L
Hct 25.6 L
Plt Count 221
APTT 62.0 H 86.9 H Pending
Vital Signs:
Vital Signs
Temp Pulse Resp BP Pulse Ox
98.4 F 86 16 157/81 96
06/08/24 03:19 06/08/24 06:00 06/08/24 06:00 06/08/24 06:00 06/08/24 06:00
I&O
06/07/24 06/08/24 06/09/24
06:59 06:59 06:59
Intake Total 900 / 900 380 / 380
Output Total 1100 / 1100 1050 / 1050
Balance -200 / -200 -670 / -670
Review of Systems
-
History Source: Patient
All other systems: Reviewed and negative
[2024-06-08] MEDS: REMERON 7.5 MG PO (09:29)
[2024-06-08] MEDS: VISBIOME 2 CAP PO (09:29)
[2024-06-08] MEDS: PROCARDIA XL (EXTENDED RELEASE) 30 MG PO (09:29)
[2024-06-08] MEDS: FLOMAX 0.4 MG PO (09:30)
[2024-06-08] MEDS: ASPIR LOW (ENTERIC COATED) 81 MG PO (09:30)
[2024-06-08] MEDS: TOPROL XL 25 MG PO (09:30)
[2024-06-08] MEDS: ZESTRIL 5 MG PO (09:30)
[2024-06-08] MEDS: SANTYL OINTMENT 1 APPLIC TOPICAL (09:33)
[2024-06-08] MEDS: INVANZ 60 MG IV (09:40)
--- NOTE | 2024-06-08 13:51 | PTCARENOTE ---
Pt presents as assessed. Aox3. NSR with PVC's on tele monitor. Sating mid to high 90's on RA. L nephrostomy draining yellow urine. Colostomy with stool output. Heparin gtt infusing and adjusted as ordered, see intervention. Able to make needs known,
call deshpande within reach.
[2024-06-08 18:22] LABS: Hematocrit 28.1 % (37.0-47.0); Hemoglobin 9.2 g/dL (12.0-16.0)
[2024-06-08 18:32] LABS: APTT 73.5 Sec (23.4-35.0)
[2024-06-08] MEDS: NEURONTIN 100 MG PO (19:53)
[2024-06-08] MEDS: LIPITOR 80 MG PO (19:53)
[2024-06-09] VITALS (13 sets, daily range): BP systolic 142–176; BP diastolic 72–119; BMI 24.1
[2024-06-09 01:10] LABS: APTT 75.5 Sec (23.4-35.0)
[2024-06-09] MEDS: HEPARIN 25000 UNITS/250 ML IV (03:23)
--- NOTE | 2024-06-09 07:41 | PTCARENOTE ---
NO acute events overnight. Remains on the heparin gtt. PTT therapeutic x2. Next PTT in am.
--- NOTE | 2024-06-09 07:57 | W.PN.HOSP.TC ---
Today's Communication/Plan
-
N.p.o. after midnight
Assessment / Plan
Assessment / Plan
Gen-AAOx3, NAD
HEENT-NC, AT, anicteric, clear oral mm
Neck-supple
CV-reg, no M, +S1/S2
Lungs-clear B/L
Abd-soft, NT, ND
Ext-no edema
Musculoskeletal-no cyanosis, clubbing, left foot dressing
Skin-warm and dry
Neuro-grossly non-focal
Psych-calm, cooperative
NSTEMI/CAD -history of left circumflex stenting. Admitted to [facility] May 29 for sepsis, UTI. Found to have an acute MS. Underwent cardiac catheterization 06/05 for multivessel CAD. Culprit lesion suspected to be left
circumflex. Attempt at PCI but unsuccessful. Small dissection noted by report. Subsequently transferred to [facility] for further intervention by Dr. Ballesteros. Plan for cardiac catheterization on Monday as per cardiology in order to allow
time for dissection to heal. Heparin drip per cardiology.
Sepsis due to UTI/pyelonephritis -underwent nephrostomy tube placement at [facility]. Source of sepsis likely due to encrusted left ureteral stent, which was originally placed 2 years ago in [facility]. Lost to follow-up by
urology. Her urologist is located in [facility]. She plans to her urologist after discharge for stent removal, appointment scheduled for this Monday, will likely need to reschedule.. Currently on IV ertapenem. Infectious disease
consulted. Blood culture and [facility] positive for strep and dysgalactiae, urine culture ESBL E. coli/Proteus. Nephrostomy culture showed pansensitive Proteus.
Blood cultures here are negative so far.
Hernandez removed 06/07, last bladder scan 219 cc. Bowels are moving. Continue tamsulosin.
Essential hypertension -stable.
Hyperlipidemia -continue atorvastatin.
Chronic normocytic anemia -unknown etiology. Hemoglobin appears to be stable and likely at baseline. Stools are brown. Will transfuse if hemoglobin drops below 8 given coronary disease. Patient states she was transfused about 8 months ago in
[facility].
Records from [facility] reviewed.
PAD -underwent lower extremity revascularization about 8 months ago with subsequent left foot wound. Consult wound care.
Metastatic cervical cancer -details unknown.
PPM
Colostomy
Full code
Anticipated Discharge: > 48 hours
Subjective/Interval History
-
Date of Service: June 09, 2024
Patient seen and examined. No complaints.
Objective Data
-
Labs:
Laboratory Results
06/09/24 06/09/24 06/09/24
00:50 07:25 12:45
APTT 75.5 H Cancelled Cancelled
Vital Signs:
Vital Signs
Temp Pulse Resp BP Pulse Ox
98.4 F 77 18 169/88 97
06/09/24 07:20 06/09/24 06:39 06/09/24 06:39 06/09/24 06:39 06/09/24 06:00
I&O
06/08/24 06/09/24 06/10/24
06:59 06:59 06:59
Intake Total 380 / 380
Output Total 1050 / 1050 1575 / 1575
Balance -670 / -670 -1575 / -1575
Review of Systems
-
History Source: Patient
All other systems: Reviewed and negative
--- NOTE | 2024-06-09 08:33 | W.PN.CD ---
Today's Communication / Plan
-
N.p.o. after midnight for possible cath and high risk PCI. Patient to be assessed by interventional cardiology tomorrow.
Continue IV heparin
Continue aspirin.
If patient goes for PCI will need to add Brilinta or Plavix. Will defer interventional cardiology.
BP elevated will. increase metoprolol. Can also titrate lwisopril
Impression / Plan
-
Coronary artery disease/NSTEMI
-Distant history of left circumflex stenting
-NSTEMI during recent hospitalization at [facility]
-Cardiac catheterization 06/05/2024 with multivessel coronary artery disease as noted above with culprit lesion suspected to be left circumflex. Unsuccessful attempted PCI of left circumflex
-Interventional cardiology planning for complex PCI on Monday. In meantime would continue with medical therapy which includes aspirin, heparin, beta-gareth and DORA inhibitor. Currently not on DAPT.
-[facility] notes suggested wall motion abnormality on echocardiogram updated echo. 06/07/2024 with normal left ventricular function EF greater than 75% no significant valvular disease
Anemia: 9.2 improved from previous.
.
Hypercholesterolemia high intensity statin
Hypertension. Elevated.
will increase metoprolol
can also titrate lisinopril
Left nephrostomy.. Patient patient with history of ureteral stent.. Recent admission with sepsis. Now with nephrostomy. Additional management as directed by primary team
.
pacemaker
PAD-bilateral femoral bypasses. Continue cilostazol
Colostomy
Echo report from 05/31/2024 hypokinetic apex, EF 50-55%, RV normal size and function,
Physical Exam
Vital Signs/Labs
Vital Signs
Temp Pulse Resp BP Pulse Ox
98.4 F 77 18 169/88 97
06/09/24 07:20 06/09/24 06:39 06/09/24 06:39 06/09/24 06:39 06/09/24 06:00
06/08/24 06/09/24 06/10/24
06:59 06:59 06:59
Actual Weight 69.513 kg 69.8 kg
06/08/24 18:14
06/07/24 04:46
APTT Cancelled 06/09/24 12:45
Triglycerides 138 mg/dl (10-149) 06/06/24 03:59
LDL Cholesterol, Calc 84 mg/dl 06/06/24 03:59
VLDL Cholesterol, Calc 27 mg/dl (0-30) 06/06/24 03:59
HDL Cholesterol 40 mg/dl 06/06/24 03:59
Physical Exam
Constitutional: No acute distress
Cardiovascular: Rhythm & rate is regular
Respiratory: Wheeze Absent, Rhonchi Absent and Other (rare crakle at base)
GI: Soft
Neuro/Psych: Alert
Data Reviewed
-
Date of Service: June 09, 2024
Medical Decision Making: Reviewed Test Results
X-Ray/CT/US/MRI/NUC/PET: Report Reviewed by me
Medical Tests (PFT, Pathology etc): Report Reviewed by me
Labs: Labs Reviewed by me
[2024-06-09] MEDS: REMERON 7.5 MG PO (09:05)
[2024-06-09] MEDS: ZESTRIL 5 MG PO ×2 (09:05→16:12)
[2024-06-09] MEDS: PROCARDIA XL (EXTENDED RELEASE) 30 MG PO (09:05)
[2024-06-09] MEDS: ASPIR LOW (ENTERIC COATED) 81 MG PO (09:06)
[2024-06-09] MEDS: FLOMAX 0.4 MG PO (09:07)
[2024-06-09] MEDS: SANTYL OINTMENT 1 APPLIC TOPICAL (09:14)
[2024-06-09] MEDS: VISBIOME 2 CAP PO (09:14)
[2024-06-09] MEDS: TOPROL XL 25 MG PO ×3 (09:35→10:19)
[2024-06-09] MEDS: INVANZ 60 MG IV (11:37)
--- NOTE | 2024-06-09 17:48 | PTCARENOTE ---
patient alert and oriented x 3 throughout shift. Cardiac medications adjusted per MD order for hypertension. heparin gtt continues at 800units/hr. via PICC line. Pt verbalizes understanding of plan of care for cath tomorrow, pt admits to feeling
anxious. Pt provided with time to vent, share feelings and ask questions. Pt reports feeling less anxious after conversation and now she had family at bedside and is in good spirits
[2024-06-09] MEDS: NEURONTIN 100 MG PO (20:46)
[2024-06-09] MEDS: LIPITOR 80 MG PO (20:46)
[2024-06-10] VITALS (23 sets, daily range): BP systolic 102–158; BP diastolic 64–88; BMI 24.0
--- NOTE | 2024-06-10 06:41 | PTCARENOTE ---
Patient remains on heparin gtt at 800units/hr. NPO at midnight for possible cath today.
[2024-06-10] MEDS: VISBIOME 2 CAP PO (07:57)
[2024-06-10] MEDS: ASPIR LOW (ENTERIC COATED) 81 MG PO (07:57)
[2024-06-10] MEDS: REMERON 7.5 MG PO (07:57)
[2024-06-10] MEDS: TOPROL XL 50 MG PO (07:57)
[2024-06-10] MEDS: PROCARDIA XL (EXTENDED RELEASE) 30 MG PO (07:57)
[2024-06-10] MEDS: FLOMAX 0.4 MG PO (07:58)
[2024-06-10] MEDS: ZESTRIL 10 MG PO (07:58)
[2024-06-10] MEDS: SANTYL OINTMENT 1 APPLIC TOPICAL (08:03)
[2024-06-10 08:28] LABS: Hematocrit 27.1 % (37.0-47.0); Hemoglobin 8.8 g/dL (12.0-16.0); Mean Corp Hgb Conc. 32.5 g/dL (33.0-37.0); Mean Corpuscular Hgb 28.2 pg (27.0-31.0); Mean Corpuscular Volume 86.9 fL (81.0-99.0); Mean Platelet Volume 9.4 fL (7.4-10.4); Platelet Count 249 10^3/uL (130-400); Red Blood Cell Count 3.12 10^6/uL (4.20-5.40); White Blood Cell Count 8.9 10^3/uL (4.8-10.8)
[2024-06-10 08:35] LABS: ALT (SGPT) 21 U/L (0-35); AST (SGOT) 23 U/L (14-36); Albumin 2.5 g/dl (3.5-5.0); Alkaline Phosphatase 37 U/L (38-126); Blood Urea Nitrogen 11 mg/dl (7-17); Calcium 8.3 mg/dl (8.4-10.2); Carbon Dioxide 30 mmol/L (22-30); Chloride 105 mmol/L (98-107); Estimated Creatinine Clearance 64 ml/min; Glucose 91 mg/dl (70-99); Magnesium 2.1 mg/dl (1.6-2.3); Potassium 4.1 mmol/L (3.5-5.1); Sodium 138 mmol/L (135-145); Total Bilirubin 0.3 mg/dl (0.2-1.3); Total Protein 5.9 g/dl (6.3-8.2); eGFR > 60.00
--- NOTE | 2024-06-10 08:48 | CM ---
Patient seen at bedside with physician. Patient for Cardiac Cath per physician and patient. Patient has been to SNF at [facility] but refuses to return there. Patient stated that she prefers to go home with and confirmed [facility]. CM will follow for discharge planning needs.
Plan; home with VN vs SNF
--- NOTE | 2024-06-10 09:00 | PTCARENOTE ---
Assumed care of patient at beginnig of this shift from previous RN with heparin infusing at 800 units/hr. Patient received CHG bath and wound care this morning from previous RN. Patient scheduled for label fuser tender today; cardiology in room to see
patient. Dr Maxwell in to see patient and discovered clonidine patch on patient's L posterior shoulder with a date of 06/02. Med is listed on her med rec, but date reads 05/29. Dr Maxwell stated she will order med for today. Patient maintained
NPO status except for meds. Await label fuser tender.
--- NOTE | 2024-06-10 09:01 | W.PN.HOSP.TC ---
Today's Communication/Plan
-
cardiac cath today
PT/OT
d/c planning
Assessment / Plan
Assessment / Plan
pt is a 79 year old female
NSTEMI/CAD--history of left circumflex stenting. Admitted to [facility] May 29 for sepsis, UTI. Found to have an acute [place]. Underwent cardiac catheterization 06/05 for multivessel CAD. Culprit lesion suspected to be left
circumflex. Attempt at PCI but unsuccessful. Small dissection noted by report. Subsequently transferred to [facility] for further intervention by Dr. Ballesteros. Plan for cardiac catheterization on Monday as per cardiology in order to allow
time for dissection to heal. Heparin drip per cardiology.
Sepsis due to UTI/pyelonephritis -underwent nephrostomy tube placement at [facility]. Source of sepsis likely due to encrusted left ureteral stent, which was originally placed 2 years ago in [facility]. Lost to follow-up by
urology. Her urologist is located in [facility]. She plans to see her urologist after discharge for stent removal. Apprec ID, IV ertapenem to eventual Bactrim 06/16-- Blood culture at [facility] positive for strep and
dysgalactiae, urine culture ESBL E. coli/Proteus. Nephrostomy culture showed pansensitive Proteus---cultures here negative--Hernandez removed 06/07--Continue tamsulosin.
Essential hypertension -stable--cont meds as able--pt has catapress patch on dated 06/02 (posterior right shoulder)
Hyperlipidemia -continue atorvastatin.
Chronic normocytic anemia -unknown etiology. Hemoglobin appears to be stable and likely at baseline. Stools are brown. Will transfuse if hemoglobin drops below 8 given coronary disease. Patient states she was transfused about 8 months ago in
[facility]--Records from [facility] already reviewed by previous physician
PAD--underwent lower extremity revascularization about 8 months ago with subsequent left foot wound. Consult wound care.
Metastatic cervical cancer -details unknown.
PPM
Colostomy
code status --Full code
DVT proph--IV heparin
Anticipated Discharge: 24 - 48 hours
Subjective/Interval History
-
Date of Service: June 10, 2024
pt chest pain free and not SOB
Objective Data
-
Labs:
Laboratory Results
06/10/24 06/10/24
05:16 08:15
WBC 8.9
Hgb 8.8 L
Hct 27.1 L
Plt Count 249
APTT 103.0 H
Sodium 138
Potassium 4.1
Chloride 105
Carbon Dioxide 30
BUN 11
Creatinine 0.7
Glucose 91
Calcium 8.3 L
Total Bilirubin 0.3
AST 23
ALT 21
Alkaline Phosphatase 37 L
Vital Signs:
max temp for 24 hours
06/09/24
15:50
Temp 99.0 F
Vital Signs
Temp Pulse Resp BP Pulse Ox
97.4 F 83 19 135/75 96
06/10/24 07:40 06/10/24 07:57 06/10/24 06:00 06/10/24 07:57 06/10/24 04:00
I&O
06/09/24 06/10/24 06/11/24
06:59 06:59 06:59
Intake Total 571 / 571
Output Total 1575 / 1575 1175 / 1175
Balance -1575 / -1575 -604 / -604
Review of Systems
-
All other systems: Reviewed and negative
Respiratory: Denies Cough or Trouble Breathing
Cardiac: Denies Chest Pain
Physical Exam
-
General: Well Developed, Well Nourished and No Apparent Distress
HEENT: Normocephalic and Atraumatic; Negative Oxygen
Respiratory: Clear to Auscultation; Negative Wheezes or Rhonchi
Cardiac: Regular Rhythm and S1/S2; Negative Murmur
GI: Soft, Nontender, Nondistended and Normal Bowel Sounds
Musculoskeletal: No Clubbing, No Cyanosis and No Edema
Neuro: Awake and Alert
Psych: Calm
--- NOTE | 2024-06-10 09:21 | W.PN.ID1 ---
Date of Service
Date of Service: June 10, 2024
Today's Communication
continue meropenem, follow renal function tomorrow
Assessment / Plan
Pyelonephritis and Complicated UTI due to ESBL E coli and Proteus
Strep Dysgalactiae bacteremia - not sustained
Encrusted L ureteral stent; s/p nephrostomy tube placement
GUILHERME - resolved
Pacemaker
Colostomy
- blood cultures x2 no growth to date
- agree with ertapenem, eventual transition to oral bactrim planned would continue through 06/16
- no objection to surgical procedures from ID perspective; would consider her to be low risk for infectious complications
- close follow up with her urologist - she will reschedule when dc planned; advised that if she has completed antibiotics, I would like her to have a dose of bactrim or ertapenem prior to the planned stent removal
Chief Complaint
-: UTI
Subjective / Review of Systems
afebrile
bp stable
for cath today
no complaints
she will reschedule with her urologist after dc is planned
Vital Signs / Physical Exam
Vital Signs
Vital Signs
Temp Pulse Resp BP Pulse Ox
97.4 F 79 23 158/77 97
06/10/24 07:40 06/10/24 08:00 06/10/24 08:00 06/10/24 08:00 06/10/24 08:00
Physical Exam
Constitutional: No Acute Distress
Cardiovascular: Regular Rate
Pulmonary: Symmetric
Gastrointestinal: Non Distended
Skin: Warm and Dry; Negative Rash or Jaundice
Neurological: Awake
Objective Data
Lab Data
Lab Results
06/10/24 08:15
06/10/24 08:15
APTT 103.0 Sec (23.4-35.0) H 06/10/24 05:16
Estimated Creat Clear 64 ml/min 06/10/24 08:15
Total Bilirubin 0.3 mg/dl (0.2-1.3) 06/10/24 08:15
AST 23 U/L (14-36) 06/10/24 08:15
ALT 21 U/L (0-35) 06/10/24 08:15
Alkaline Phosphatase 37 U/L (38-126) L 06/10/24 08:15
Most recent labs reviewed.
Micro Results:
06/06/24 03:58 Blood Culture - Preliminary
Blood/Venous No Growth in 4 days- Final report to follow
06/06/24 14:20 Blood Culture - Preliminary
Blood/Venous No Growth in 72 hours- Final report to follow
06/06/24 01:38 MRSA Screen - Final
Nose No Methicillin Resistant Staphylococcus aureus isolated.
[2024-06-10] MEDS: INVANZ 60 MG IV (09:29)
[2024-06-10] MEDS: CATAPRES-TTS-2 0.2 MG TRANSDERM (09:29)
--- NOTE | 2024-06-10 09:51 | PTCARENOTE ---
Patient's dentures removed and placed in denture cup. Earrings and necklace removed and placed in second denture cup. Both cups with patient labels and placed in bathroom.
--- NOTE | 2024-06-10 11:26 | PTCARENOTE ---
Patient taken to cytology laboratory manager by cytology laboratory manager RNs. Heparin drip d/c'd by them prior to transfer. Purewick kept in place per their request and they will connect in dept.
[2024-06-10 12:06] LABS: ACT-LR - POC 281 Seconds (116-155)
[2024-06-10 12:30] LABS: ACT-LR - POC 268 Seconds (116-155)
--- NOTE | 2024-06-10 13:41 | PTCARENOTE ---
Patient's up to IMU; provided new room number in IVU. He has her jewelry and dentures. Belongings to be taken to new room.
[2024-06-10] MEDS: NSS 1000 IV (16:27)
[2024-06-10] MEDS: TYLENOL 650 MG PO (16:42)
--- NOTE | 2024-06-10 17:03 | W.PN.CD ---
Addendum entered and electronically signed by Low Brower MD 06/10/24 17:15:
Hyperlipidemia
-LDL 84 despite high intensity statin, adding ezetimibe but to achieve goal LDL<55 will likely need PCSK9i initiation as outpatient
Original Note:
Today's Communication / Plan
-
s/p successful PCI to LAD and diagonal (LCx deferred due to recent dissection, will be done outpatient in 1 month)
plavix 600 given in lab
500 cc IVF for post-cath hydration
cont. dapt with asa/plavix
no longer needs heparin
lisinopril inc. to 20
Impression / Plan
-
Coronary artery disease/NSTEMI
-Distant history of left circumflex stenting
-NSTEMI during recent hospitalization at [facility]/ cardiac catheterization 06/05/2024 with multivessel coronary artery disease as noted above with culprit lesion suspected to be left circumflex. Unsuccessful attempted PCI of left circumflex
complicated by dissection.
-s/p PCI to the LAD and diagonal today
-PCI to LCx deferred in setting of normal flow, will stage for 4 weeks from now.
-s/p Plavix load in lab, cont. ASA/Plavix
-stop heparin
-cont. metop 50 qD
-inc. lisinopril to 20 from 10
-[facility] notes suggested wall motion abnormality on echocardiogram updated echo. 06/07/2024 with normal left ventricular function EF greater than 75% no significant valvular disease
Anemia: 9.2 improved from previous.
Hypercholesterolemia high intensity statin
Hypertension. Elevated. increased lisionpril
will increase metoprolol
can also titrate lisinopril
Left nephrostomy.. Patient patient with history of ureteral stent.. Recent admission with sepsis. Now with nephrostomy. Additional management as directed by primary team
pacemaker
PAD-bilateral femoral bypasses. Continue cilostazol
Colostomy
Echo report from 05/31/2024 hypokinetic apex, EF 50-55%, RV normal size and function,
Physical Exam
Vital Signs/Labs
Vital Signs
Temp Pulse Resp BP Pulse Ox
36.6 C 85 18 139/78 98
06/10/24 15:09 06/10/24 13:45 06/10/24 15:09 06/10/24 13:45 06/10/24 15:09
06/09/24 06/10/24 06/11/24
06:59 06:59 06:59
Actual Weight 69.8 kg 69.5 kg
06/10/24 08:15
06/10/24 08:15
APTT 103.0 Sec (23.4-35.0) H 06/10/24 05:16
Magnesium 2.1 mg/dl (1.6-2.3) 06/10/24 08:15
Triglycerides 138 mg/dl (10-149) 06/06/24 03:59
LDL Cholesterol, Calc 84 mg/dl 06/06/24 03:59
VLDL Cholesterol, Calc 27 mg/dl (0-30) 06/06/24 03:59
HDL Cholesterol 40 mg/dl 06/06/24 03:59
Physical Exam
Constitutional: No acute distress
Cardiovascular: Rhythm & rate is regular
Respiratory: Respiratory effort normal and Lungs clear to auscul.
Neuro/Psych: AO x 3
Data Reviewed
-
Date of Service: June 10, 2024
Medical Decision Making: Reviewed Test Results
EKG: Tracing Personally Visualized and interpreted and Report Reviewed by me
Echo: Tracing Personally Visualized and interpreted and Report Reviewed by me
Labs: Labs Reviewed by me
[2024-06-10] MEDS: ZETIA 10 MG PO (17:29)
--- NOTE | 2024-06-10 17:59 | PTCARENOTE ---
Received pt post cardiac cath. VSS. Right radial cath site w/ R band intact. R band w/ 13 ml of air. Pt's family at bedside. Pt denies any chest discomfort. Post cath orders noted. Will monitor.
--- NOTE | 2024-06-10 21:49 | ITS.CL.PN ---
Addendum entered and electronically signed by Low Brower MD 06/11/24 08:21:
Copy to: Dr. Brenton Billy MD (primary sanitation manager); Dr. Jese Askew MD (referring sanitation manager); Dr. Janice Ortega MD (PCP)
Original Note:
[employer] [facility] [employer]eder - Procedure Note
Procedure
Procedure Note:
Procedure Note:
CARDIAC CATHETERIZATION REPORT
Date of Procedure: 06/10/2024
Referring: Dr. Jese Askew MD
Indication: NSTEMI
PROCEDURE:
1. Coronary angiography
2. Left heart catheterization
3. IVUS LAD artery
4. PCI LAD artery with KUMAR
5. IVUS diagonal artery
6. PCI diagonal artery with KUMAR
ACCESS:
6 [place] right radial artery (TR band)
CATHETERS:
1. 6 [place] JL3.5
2. 6 [place] JR4
3. 6 [place] XB3.5 guide
HEMODYNAMIC DATA
AO 133/69 (mean 90) mmHg
LV 138/6 (EDP 19) mmHg
CORONARY ANGIOGRAPHY
Dominance: right
LM: large and normal
LAD: large vessel giving rise to a large D1 and large D2. There is an 80% calcified stenosis in the mid-LAD and a focal 80% calcified stenosis in the proximal aspect of the D2. The remainder of the vessel demonstrates diffuse mild disease.
LCx: moderate caliber vessel giving rise to a small OM1, small OM2, and moderate caliber OM3. There is a patent stent in the distal LCx. There is a severe heavily calcified 90% stenosis in the mid-LCx with MATTIE 3 flow distally. The proximal LCx
shows evidence of a healing dissection.
RCA: moderate vessel giving rise to a large RPDA and small RPL branch. There is diffuse moderate disease in the mid-distal RCA and otherwise luminal irregularities.
INTERVENTIONS
The left main was engaged with a XB3.5 guide catheter and a Runthrough wire placed in the distal LAD. Initial lesion preparation was performed with a 2.0x12 mm balloon with full expansion. IVUS was performed demonstrating a 2.75 reference vessel
with moderate calcification. A 2.5x30 mm Dionisio Garnavillo KUMAR was delivered at 16 diamante, followed by post-dilation with a 2.75x12 mm NC balloon to high pressure. Final IVUS demonstrated an excellent result with full stent expansion, apposition, and no
edge dissections. The angiographic result was excellent. The wire was then redirected to the diagonal branch and initial lesion preparation performed with a 2.0x12 balloon with a waist visualized at the area of focal severe calcification. A 2.25x12
mm NC balloon was then delivered and inflated to high pressure. At 18 diamante, the lesion yielded but the balloon ruptured causing a distal dissection with contrast staining. There was no evidence of extravasation and the patient remained stable. A
2.25x28 mm Xience Skypoint KUMAR was selected and deployed, with careful attention to cover the distal edge of the dissection. IVUS was then performed, demonstrating no dissection beyond the distal edge, but a small region of dissection proximal to
the proximal stent edge. This was covered with an additional 2.5x8 mm Dionisio Garnavillo KUMAR. IVUS had also demonstrated a focal are of underexpansion at the prior severe lesion site. This was further treated with a 2.5x12 mm NC balloon to high pressure
with full expansion. Final IVUS demonstrated full coverage of the dissection with full expansion and apposition of the stent. Final angiographic result was excellent. The wire and guide were removed and a TR band placed. The patient was loaded with
Plavix and taken to the cath recovery unit in excellent condition.
RADIATION:
Radiation dose (mGy): 1453
DAP (cm2.Gy): 115.2
Fluoroscopy time (minutes): 26.3
CONCLUSIONS:
1. Coronary angiography with evidence of severe two vessel CAD as described.
2. Left heart catheterization with mildly elevated LV filling pressure and no aortic stenosis
3. Successful IVUS-guided PCI of the LAD with placement of a 2.5x30 KUMAR post dilated to high pressure with a 2.75 mm NC balloon.
4. Successful IVUS-guided PCI of the diagonal artery with placement of overlapping 2.5x8 and 2.25x28 mm KUMAR post dilated to high pressure with a 2.5 mm NC balloon.
RECOMMENDATIONS:
1. Expectant management after catheterization via right radial approach.
2. 500 cc IVF for CLIFTON prevention
3. DAPT with ASA/Plavix for at least 1 year
4. High intensity statin for goal LDL<55
5. Staged revascularization of the LCx after another 4 weeks to allow full healing of dissection
Copy to: Dr. Jese Askew MD (referring sanitation manager); Dr. Janice Ortega MD (PCP)
Signed: Low Brower MD, PhD
[2024-06-10] MEDS: LIPITOR 80 MG PO (22:22)
[2024-06-10] MEDS: NEURONTIN 100 MG PO (22:22)
--- NOTE | 2024-06-10 22:42 | PTCARENOTE ---
Received patient at change of shift. A paced on the monitor with PVCs, HR in the 70s, VSS. R radial band removed and dressing applies, see documentation. R radial dressing CDI. No complaints from pt at this time, call deshpande within reach.
[2024-06-11 03:36] VITALS: BP 145/114
[2024-06-11 05:08] LABS: APTT 43.6 Sec (23.4-35.0)
[2024-06-11 05:14] LABS: Hematocrit 29.4 % (37.0-47.0); Hemoglobin 9.6 g/dL (12.0-16.0); Mean Corp Hgb Conc. 32.7 g/dL (33.0-37.0); Mean Corpuscular Hgb 28.6 pg (27.0-31.0); Mean Corpuscular Volume 87.5 fL (81.0-99.0); Mean Platelet Volume 9.2 fL (7.4-10.4); Platelet Count 299 10^3/uL (130-400); Red Blood Cell Count 3.36 10^6/uL (4.20-5.40); Red Cell Dist. Width 14.4 % (11.5-14.5); White Blood Cell Count 9.7 10^3/uL (4.8-10.8)
[2024-06-11 05:17] LABS: ALT (SGPT) 19 U/L (0-35); AST (SGOT) 18 U/L (14-36); Albumin 2.6 g/dl (3.5-5.0); Alkaline Phosphatase 42 U/L (38-126); Blood Urea Nitrogen 11 mg/dl (7-17); Calcium 8.6 mg/dl (8.4-10.2); Carbon Dioxide 27 mmol/L (22-30); Chloride 105 mmol/L (98-107); Estimated Creatinine Clearance 56 ml/min; Glucose 88 mg/dl (70-99); Magnesium 2.1 mg/dl (1.6-2.3); Potassium 4.1 mmol/L (3.5-5.1); Sodium 139 mmol/L (135-145); Total Bilirubin 0.3 mg/dl (0.2-1.3); Total Protein 6.2 g/dl (6.3-8.2); eGFR > 60.00
--- NOTE | 2024-06-11 07:43 | W.PN.CD ---
Today's Communication / Plan
-
stable for discharge from a cardiovascular perspective
plan for outpatient PCI of LCx 07/12/24, will arrange thorough our office
patient will follow up with her primary piece goods clerk Dr. Brenton Billy in the next several weeks for post-cath check and continued cardiology care
Impression / Plan
-
Coronary artery disease/NSTEMI
-Distant history of left circumflex stenting
-NSTEMI during recent hospitalization at [facility]/ cardiac catheterization 06/05/2024 with multivessel coronary artery disease as noted above with culprit lesion suspected to be left circumflex. Unsuccessful attempted PCI 06/05/2024 of left
circumflex complicated by dissection.
-s/p PCI to the LAD and diagonal 06/11/2024
-PCI to LCx deferred in setting of normal flow, will stage for 4 weeks from now (07/12/24)
-s/p Plavix load in lab, cont. ASA/Plavix
-cont. metop 50 qD
-inc. lisinopril to 20 from 10
-[facility] notes suggested wall motion abnormality on echocardiogram updated echo. 06/07/2024 with normal left ventricular function EF greater than 75% no significant valvular disease
Anemia: Hb stable here
Hypercholesterolemia
-high intensity statin, added ezetimibe
-eventual need for PSCK9i likely for goal LDL<55
Hypertension: elevated here, increased lisinopril
Left nephrostomy. Patient patient with history of ureteral stent.. Recent admission with sepsis. Now with nephrostomy. Additional management as directed by primary team and ID.
pacemaker
PAD-bilateral femoral bypasses. Continue cilostazol
Colostomy
Echo report from 05/31/2024 hypokinetic apex, EF 50-55%, RV normal size and function,
Physical Exam
Vital Signs/Labs
Vital Signs
Temp Pulse Resp BP Pulse Ox
36.6 C 78 18 145/114 96
06/11/24 03:30 06/11/24 04:00 06/11/24 03:30 06/11/24 03:36 06/11/24 03:30
06/10/24 06/11/24 06/12/24
06:59 06:59 06:59
Actual Weight 69.5 kg
06/11/24 04:31
06/11/24 04:31
APTT 43.6 Sec (23.4-35.0) H 06/11/24 04:31
Magnesium 2.1 mg/dl (1.6-2.3) 06/11/24 04:31
Triglycerides 138 mg/dl (10-149) 06/06/24 03:59
LDL Cholesterol, Calc 84 mg/dl 06/06/24 03:59
VLDL Cholesterol, Calc 27 mg/dl (0-30) 06/06/24 03:59
HDL Cholesterol 40 mg/dl 06/06/24 03:59
Physical Exam
Constitutional: No acute distress
Cardiovascular: Rhythm & rate is regular, Pedal edema is absent, JVD pressure is normal, Systolic murmur absent and Diastolic murmur absent
Respiratory: Respiratory effort normal
Neuro/Psych: AO x 3
Other: Cath Site ([facility])
Data Reviewed
-
Date of Service: June 11, 2024
Medical Decision Making: Reviewed Test Results
Labs: Labs Reviewed by me
[2024-06-11 07:46] VITALS: BP 157/78
[2024-06-11] MEDS: TOPROL XL 50 MG PO (07:48)
[2024-06-11] MEDS: VISBIOME 2 CAP PO (07:48)
[2024-06-11] MEDS: ZESTRIL 20 MG PO (07:48)
[2024-06-11] MEDS: PROCARDIA XL (EXTENDED RELEASE) 30 MG PO (07:48)
[2024-06-11] MEDS: ZETIA 10 MG PO (07:49)
[2024-06-11] MEDS: PLAVIX 75 MG PO (07:49)
[2024-06-11] MEDS: FLOMAX 0.4 MG PO (07:49)
[2024-06-11] MEDS: ASPIR LOW (ENTERIC COATED) 81 MG PO (07:49)
[2024-06-11] MEDS: REMERON 7.5 MG PO (07:51)
--- NOTE | 2024-06-11 07:53 | W.PN.HOSP.TC ---
Today's Communication/Plan
-
will need IV abx with ertapenem if that is what ID wants
d/c today
Assessment / Plan
Assessment / Plan
pt is a 79 year old female
NSTEMI/CAD--history of left circumflex stenting. Admitted to [facility] May 29 for sepsis, UTI. Found to have an acute PR. Underwent cardiac catheterization 06/05 for multivessel CAD. Culprit lesion suspected to be left
circumflex. Attempt at PCI but unsuccessful. Small dissection noted by report. Subsequently transferred to [facility] for further intervention by Dr. Ballesteros. s/p cardiac catheterization with stent to LAD and diagonal artery--asa/plavix
for 1 year
Sepsis due to UTI/pyelonephritis -underwent nephrostomy tube placement at [facility]. Source of sepsis likely due to encrusted left ureteral stent, which was originally placed 2 years ago in [facility]. Lost to follow-up by
urology. Her urologist is located in [facility]. She plans to see her urologist after discharge for stent removal. Apprec ID, IV ertapenem to eventual Bactrim 06/16-- Blood culture at [facility] positive for strep and
dysgalactiae, urine culture ESBL E. coli/Proteus. Nephrostomy culture showed pansensitive Proteus---cultures here negative--Hernandez removed 06/07--Continue tamsulosin.
Essential hypertension -stable--cont meds as able--pt has catapress patch on dated 06/02 (posterior right shoulder)
Hyperlipidemia -continue atorvastatin.
Chronic normocytic anemia -unknown etiology. Hemoglobin appears to be stable and likely at baseline. Stools are brown. Will transfuse if hemoglobin drops below 8 given coronary disease. Patient states she was transfused about 8 months ago in
[facility]--Records from [facility] already reviewed by previous physician
PAD--underwent lower extremity revascularization about 8 months ago with subsequent left foot wound. Consult wound care.
Metastatic cervical cancer -details unknown.
PPM
Colostomy
code status --Full code
DVT proph--IV heparin
Anticipated Discharge: Today
Subjective/Interval History
-
Date of Service: June 11, 2024
pt without c/o--no cp or sob
Objective Data
-
Labs:
Laboratory Results
06/11/24
04:31
WBC 9.7
Hgb 9.6 L
Hct 29.4 L
Plt Count 299 D
APTT 43.6 H
Sodium 139
Potassium 4.1
Chloride 105
Carbon Dioxide 27
BUN 11
Creatinine 0.8
Glucose 88
Calcium 8.6
Total Bilirubin 0.3
AST 18
ALT 19
Alkaline Phosphatase 42
Vital Signs:
max temp for 24 hours
06/10/24
15:09
Temp 98 F
Vital Signs
Temp Pulse Resp BP Pulse Ox
97.9 F 78 18 145/114 96
06/11/24 03:30 06/11/24 04:00 06/11/24 03:30 06/11/24 03:36 06/11/24 03:30
I&O
06/10/24 06/11/24 06/12/24
06:59 06:59 06:59
Intake Total 571 / 571 1080 / 1080
Output Total 1175 / 1175 1400 / 1400
Balance -604 / -604 -320 / -320
Review of Systems
-
All other systems: Reviewed and negative
Physical Exam
-
General: Well Developed, Well Nourished and No Apparent Distress
HEENT: Normocephalic and Atraumatic
Respiratory: Clear to Auscultation; Negative Wheezes or Crackles
Cardiac: Regular Rhythm and S1/S2; Negative Murmur
GI: Soft, Nontender, Nondistended and Normal Bowel Sounds
Musculoskeletal: No Clubbing, No Cyanosis and No Edema
Skin: Warm
Neuro: Awake and Alert
Psych: Calm
[2024-06-11] MEDS: SANTYL OINTMENT 1 APPLIC TOPICAL (07:57)
--- NOTE | 2024-06-11 08:53 | W.PN.ID1 ---
Date of Service
Date of Service: June 11, 2024
Today's Communication
- transition to oral bactrim continue through 06/16
- close follow up with her urologist - she will reschedule when dc planned; advised that if she has completed antibiotics, I would like her to have a dose of bactrim or ertapenem prior to the planned stent removal; message left for her urologist at
[facility] as well by my office
Assessment / Plan
Pyelonephritis and Complicated UTI due to ESBL E coli and Proteus
Strep Dysgalactiae bacteremia - not sustained
Encrusted L ureteral stent; s/p nephrostomy tube placement
GUILHERME - resolved
Pacemaker
Colostomy
- blood cultures x2 no growth to date
- transition to oral bactrim continue through 06/16
- close follow up with her urologist - she will reschedule when dc planned; advised that if she has completed antibiotics, I would like her to have a dose of bactrim or ertapenem prior to the planned stent removal;
Chief Complaint
-: UTI
Subjective / Review of Systems
afebrile
bp stable
s/p uncomplicated PCI
no complaints
Vital Signs / Physical Exam
Vital Signs
Vital Signs
Temp Pulse Resp BP Pulse Ox
98.9 F 86 16 157/78 99
06/11/24 07:45 06/11/24 08:00 06/11/24 07:45 06/11/24 07:46 06/11/24 07:46
Physical Exam
Constitutional: No Acute Distress
Cardiovascular: Regular Rate and S1/S2; Negative Murmur or Rub
Pulmonary: Clear and Symmetric; Negative Wheezes or Rales
Gastrointestinal: Soft, Non Tender, Non Distended and Normal Bowel Sounds
Skin: Warm and Dry; Negative Rash or Jaundice
Objective Data
Lab Data
Lab Results
06/11/24 04:31
06/11/24 04:31
APTT 43.6 Sec (23.4-35.0) H 06/11/24 04:31
Estimated Creat Clear 56 ml/min 06/11/24 04:31
Total Bilirubin 0.3 mg/dl (0.2-1.3) 06/11/24 04:31
AST 18 U/L (14-36) 06/11/24 04:31
ALT 19 U/L (0-35) 06/11/24 04:31
Alkaline Phosphatase 42 U/L (38-126) 06/11/24 04:31
Most recent labs reviewed.
Micro Results:
06/06/24 03:58 Blood Culture - Final
Blood/Venous No Growth - Final Report
06/06/24 14:20 Blood Culture - Preliminary
Blood/Venous No Growth in 4 days- Final report to follow
06/06/24 01:38 MRSA Screen - Final
Nose No Methicillin Resistant Staphylococcus aureus isolated.
Care Review
Plan reviewed with: Physician (Dr Maxwell - macy)
[2024-06-11] MEDS: BACTRIM DS 800 MG/160 MG 1 TABLET PO (10:00)
--- NOTE | 2024-06-11 10:19 | VATNOTE ---
Right midline dc'd for discharge. Tcl 20cm retrieved. Occlusive dressing applied.
[2024-06-11 11:13] VITALS: BP 145/82
--- NOTE | 2024-06-11 12:25 | PTCARENOTE ---
Pt received this am with no c/o of any chest pain or sob. Right radial site [employer] with no hematoma. Pt discharged to home with her . Discharge instructions given and reviewed with pt. Pt verbalized good understanding of all instructions.
--- NOTE | 2024-06-11 12:46 | CM ---
called by [facility]- as of today they no longer take [employer]. called pt, she is agreeable to [facility]- referral faxed.
--- NOTE | 2024-06-11 16:29 | W.DCSUMMARY ---
Discharge Summary
Discharge Data
Date of Admission: 06/05/24
Date of Discharge: 06/11/24
Total time spent discharging patient (in min): 45
-
Pending Results: No
Hospital Course
Primary care physician : Janice Ortega
Principal Discharge diagnosis : Non-ST segment elevation myocardial infarction with coronary artery disease, sepsis due to urinary tract infection and pyelonephritis
Chronic Discharge diagnosis : Essential hypertension, hyperlipidemia, chronic anemia unknown etiology, peripheral arterial disease, history of metastatic cervical cancer
Hospital Course : Patient was a 79-year-old female who was transferred here from [facility] where she underwent cardiac cath on June 05, 2024. She had highly sensitive troponin levels but Was initially held off from her admission
due to severe sepsis from an obstructing ureteral stent. Echocardiogram done at that hospital showed grade 1 diastolic dysfunction with the entire apex abnormal. She had a proximal LAD 75% occlusion, mid LAD lesion 30 to 40%, circumflex lesion 80
to 90%. On June 04, 2024, patient spiked a temperature of 101 and was given Tylenol. White count did spike to 14-1/2 per the hospitalist report at [facility]. On June 02, 2024 patient had severe sepsis growing extended spectrum
beta-lactamase Escherichia coli secondary to an encrusted ureteral stent that was in place for a year. She was lost to follow-up. Nephrostomy tube was placed on the left on June 01, 2024 and urine culture grew Proteus mirabilis. Attempt at
cardiac catheterization at [facility] was unsuccessful and circumflex had a small dissection. Patient was transferred here.
Problem #1: Non-ST segment elevation myocardial infarction with coronary artery disease. Patient was seen in consultation by cardiology and underwent cardiac catheterization here on June 10, 2024. Stents to the LAD and diagonal artery were
placed. Patient was started on aspirin and Plavix and should continue that for 1 year. It is recommended that the patient follow back up in approximately 1 month to have left circumflex stent placed but this is being postponed to allow the
dissection to heal. She was continued on metoprolol and lisinopril. Lipids were checked and showed total cholesterol 151, triglycerides 138, LDL of 84 and HDL of 40. Because of her myocardial infarction, high-intensity statin was started.
Problem #2: Sepsis due to urinary tract infection and pyelonephritis. These were found to be from [facility]. Cultures here are negative. She was seen in consultation by infectious disease. She was started on ertapenem. She has been
transitioned to oral Bactrim to continue through June 16, 2024. She should not start her lisinopril until after her Bactrim is finished. She should have close follow-up with her urologist and should have a dose of either ertapenem or Bactrim
prior to the planned stent removal.
Problem #3: All other medical issues. These include Essential hypertension, hyperlipidemia, chronic anemia unknown etiology, peripheral arterial disease, history of metastatic cervical cancer. These medical issues were stable during her
hospitalization. Medications were continued as able.
Patient is stable for discharge home at this time. If there are any questions regarding this dictation or her hospital stay, please do not hesitate to call. Our office number is [phone].
Time for discharge 45 minutes.
Important imaging findings :
ECHO CONCLUSIONS:
Normal left ventricular size and wall thickness. LV ejection fraction is
hyperdynamic on visual assessment with an LVEF greater than 75%.
Stage I diastolic dysfunction suggestive of abnormal relaxation.
No significant valvular disease.
When compared to the echo report from 05/31/2024 (images unavailable) the LVEF
has increased from 50 to 55% to hyperdynamic. Apical hypokinesis is no longer
seen.
Procedure findings :
CARDIAC CATH CONCLUSIONS:
1. Coronary angiography with evidence of severe two vessel CAD as described.
2. Left heart catheterization with mildly elevated LV filling pressure and no aortic stenosis
3. Successful IVUS-guided PCI of the LAD with placement of a 2.5x30 KUMAR post dilated to high pressure with a 2.75 mm NC balloon.
4. Successful IVUS-guided PCI of the diagonal artery with placement of overlapping 2.5x8 and 2.25x28 mm KUMAR post dilated to high pressure with a 2.5 mm NC balloon.
Discharge Plan
-
Patient Disposition: Home (Routine Discharge)
Discharge Diagnosis/Procedures: Non-ST segment elevation myocardial infarction with stents to the LAD and diagonal arteries, sepsis due to extended spectrum beta-lactamase Escherichia coli and Proteus urinary tract infection with pyelonephritis,
essential hypertension, hyperlipidemia, anemia of chronic disease, peripheral arterial disease, metastatic cervical cancer history
Angioplasty and stent x1 to Left Anterior Descending and x2 to Diagonal arteries (06/10)
Condition: Good
Diet: Low Cholesterol and 2 Gram Sodium
Activity: As tolerated
Driving Restrictions: As prior to admission
Bathing Restrictions: As below regarding wound care
Others Tests: You will return to pathology lab technician for stage intervention on 07/[address] Brower, the office will call you with instructions
Other Services: Cardiac Rehab
Activity Restrictions/Additional Instructions:
Wound Care Instructions Left heel and dorsal foot wound- Clean with normal saline or soap and water. Apply rod thick layer of Santyl and cover with adaptic and dry dressing. Change daily.
Sacrum- Sacral silicone border foam. Assess skin under dressing daily. Change Q 3 days and PRN if loose or soiled.
Continue to follow with your director of accounting at [facility].
Air or gel cushion to chair
Change position frequently
Stand Alone Forms: DC Instructions- Cath/EP Lab
Referrals:
[facility] [Outside]
Janice Ortega MD [Family Provider] - in less than 1 week
Brenton Billy MD [Non-Admitting Privileges] - in two weeks (Please call to schedule)
Additional Discharge Medication Instructions: do NOT start lisinopril until after you finish the Bactrim
Prescriptions:
New
sulfamethoxazole-trimethoprim 800-160 mg Tablet
1 tab PO BID Qty: 14 0RF
Rx Instructions:
take through 06/16/24
tamsulosin 0.4 mg Capsule
0.4 mg PO DAILY Qty: 30 0RF
clopidogrel 75 mg Tablet
75 mg PO DAILY Qty: 30 0RF
ezetimibe 10 mg Tablet
10 mg PO DAILY Qty: 30 0RF
lisinopril 20 mg Tablet
20 mg PO DAILY Qty: 30 0RF
metoprolol succinate 50 mg Tablet Extended Release 24 Hr
50 mg PO DAILY Qty: 30 0RF
Continued
nifedipine [Procardia XL] 30 mg Tablet Extended Release 24hr
30 mg PO DAILY
atorvastatin 80 mg Tablet
80 mg PO HS
clonidine [Ufdnpjyn-EVB-0] 0.2 mg/24 hr Patch Weekly
0.2 mg TRANSDERMAL QWEEK
Rx Instructions:
on monday
aspirin 81 mg Tablet,Delayed Release (Dr/Ec)
81 mg PO DAILY
mirtazapine [Remeron] 15 mg Tablet
7.5 mg PO DAILY
gabapentin [Neurontin] 100 mg Capsule
100 mg PO HS
Santyl 250 unit/gram Ointment
1 applic TOPICAL DAILY
Discontinued
nifedipine [Procardia XL] 30 mg Tablet Extended Release 24hr
30 mg PO DAILY
cilostazol 100 mg Tablet
100 mg PO BID
acetaminophen 325 mg Tablet
650 mg PO Q6H PRN (Reason: mild pain/fever >100.4/SUTTON)
lisinopril 5 mg Tablet
5 mg PO DAILY
metoprolol succinate [Toprol XL] 25 mg Tablet Extended Release 24 Hr
25 mg PO DAILY
ertapenem [Invanz] 1 gram Recon Soln
1 g IM Q24H
heparin (porcine) 5,000 unit/mL Syringe
5,000 unit SC Q12H
Discharge Orders:
Discharge Patient (As Directed); Ordered 06/11/24
Ordered By: Jane Maxwell
Care Plan Goals
Care Plan Goals:
Problem: Readiness for enhanced knowledge related to diagnosis and treatment plan
Goal: Understand your diagnosis and treatment plan needs, including medications if applicable.
Instructions: Know your diagnosis, underlying causes and treatment plan options, including medications if applicable. Consult with your health care team to learn about your diagnosis and treatment plan, including medications if applicable.
Discharge Date and Time
Discharge Date/Time: 06/11/24 12:37
Print Language: SAMOAN
== END 2024-06-11 12:37 | disposition home health service (06) | DRG 321 ==
LOC: IVU 23:25
PROVIDERS: Clinical Nurse Specialist Family Health; Hospitalist; ADMITTING PHYSICIAN Student in an Organized Health Care Education/Training Program; ATTENDING PHYSICIAN Internal Medicine; CONSULT PHYSICIAN Student in an Organized Health Care Education/Training Program; FAMILY PHYSICIAN Internal Medicine; OTHER PHYSICIAN Internal Medicine Cardiovascular Disease; REFERRING PHYSICIAN Internal Medicine Interventional Cardiology
PROC: 027135Z Dilation of Coronary Artery, Two Arteries with Two Drug-eluting Intraluminal Devices, Percutaneous Approach (ICD-10-PCS; 2024-06-10)
PROC: B240ZZ3 Ultrasonography of Single Coronary Artery, Intravascular (ICD-10-PCS; 2024-06-10)
PROC: 4A023N7 Measurement of Cardiac Sampling and Pressure, Left Heart, Percutaneous Approach (ICD-10-PCS; 2024-06-10)
PROC: B2111ZZ Fluoroscopy of Multiple Coronary Arteries using Low Osmolar Contrast (ICD-10-PCS; 2024-06-10)
DX: I25.10 Atherosclerotic heart disease of native coronary artery without angina pectoris (principal); I21.4 Non-ST elevation (NSTEMI) myocardial infarction
CPT/HCPCS: 93308; 71046; 80053; 80061; 83735; 84484; 85014; 85018; 85025; 85027; 85347; 85730; 86803; 86850; 86900; 86901; 87040; 87070; 92978; 93005; 97116; 97163; 97166; C1725; C1753; C1874; C1887; C1894; C9600; C9601; J1335; Q9967

== ENCOUNTER 2024-08-20 09:12 | Day surgery (SDC) | payer MEDICARE, SELFPAY ==
[2024-08-20] VITALS (17 sets, daily range): BP systolic 102–140; BP diastolic 56–84; BMI 21.6
[2024-08-20 09:38] LABS: Hemoglobin 10.8 g/dL (12.0-16.0); Mean Corp Hgb Conc. 31.8 g/dL (33.0-37.0); Mean Corpuscular Hgb 27.2 pg (27.0-31.0); Mean Corpuscular Volume 85.6 fL (81.0-99.0); Mean Platelet Volume 9.3 fL (7.4-10.4); Platelet Count 116 10^3/uL (130-400); Red Blood Cell Count 3.97 10^6/uL (4.20-5.40); Red Cell Dist. Width 15.4 % (11.5-14.5); White Blood Cell Count 7.4 10^3/uL (4.8-10.8)
[2024-08-20 09:51] LABS: ALT (SGPT) 28 U/L (0-35); AST (SGOT) 32 U/L (14-36); Alkaline Phosphatase 57 U/L (38-126); Blood Urea Nitrogen 32 mg/dl (7-17); Calcium 9.6 mg/dl (8.4-10.2); Carbon Dioxide 32 mmol/L (22-30); Chloride 97 mmol/L (98-107); Estimated Creatinine Clearance 28 ml/min; Glucose 102 mg/dl (70-99); Potassium 3.4 mmol/L (3.5-5.1); Sodium 138 mmol/L (135-145); Total Bilirubin 0.9 mg/dl (0.2-1.3); Total Protein 7.6 g/dl (6.3-8.2); eGFR 32.81
[2024-08-20] MEDS: NSS 185 ML IV (10:25)
[2024-08-20 12:27] LABS: ACT-LR - POC 350 Seconds (116-155)
[2024-08-20 13:00] LABS: ACT-LR - POC 284 Seconds (116-155)
[2024-08-20 13:21] LABS: ACT-LR - POC 314 Seconds (116-155)
[2024-08-20 13:52] LABS: ACT-LR - POC 327 Seconds (116-155)
[2024-08-20] MEDS: NSS 1000 IV (14:58)
[2024-08-20] MEDS: KCL 20 MEQ PO (14:59)
--- NOTE | 2024-08-20 15:39 | ITS.CL.PN ---
Tipple Worker - Procedure Note
Procedure
Procedure Note:
CARDIAC CATHETERIZATION REPORT
Date of Procedure: 08/20/2024
Referring: Dr. Jese Askew
Indication: NSTEMI
PROCEDURE(S)
1. left heart catheterization
2. coronary angiography
3. IVUS of LCx
4. PCI with orbital atherectomy and KUMAR of LCx
ACCESS: 6F distal left radial artery (closure: radial band)
CATHETERS: 6F XB4 guide catheter
MODERATE SEDATION: 129 minutes of moderate sedation was utilized. An independent hospital medical biller was present to assist with and help manage the patient's level of consciousness and physiologic status.
ULTRASOUND GUIDED VASCULAR ACCESS (distal left radial artery): Ultrasound was utilized for vascular access. The vessel was visualized under ultrasound and noted to be patent. An image of the vessel was stored permanently in the patient's medical
record. Under direct ultrasound guidance, vascular access was obtained using a modified Seldinger technique and a 6 Khmer sheath was placed.
HEMODYNAMIC DATA
LV 167/7 (EDP 13) mmHg
AO 168/80 (mean 87) mmHg
CORONARY ANGIOGRAPHY
LM: large and normal
LAD: large vessel giving rise to a large D1, large D2 and multiple septal branches. There is a widely patent stent in the D2 and mid-LAD and otherwise mild non-obstructive disease.
LCx: large vessel giving rise to a small OM1, small OM2, and large branching LPL. There is a long segment of calcified disease up to 60% in the mid-LCx with a focal area of 90% stenosis just before a prior stent. There is mild-moderate ISR within
the prior stent. There is otherwise mild disease. The previously noted dissection in the proximal vessel appears healed.
RCA: not selectively engaged as no significant diseased on recent coronary angiography
PCI to mid-LCx with orbital atherectomy and drug eluting stent
The left main was engaged with an XB 4.0 guide catheter. Heparin was administered to achieve ACT greater than 300. A Viper wire was placed in the distal LPL branch. 5 runs of orbital atherectomy were performed at low speed with significant
improvement in lesion appearance. The patient tolerated atherectomy well without hemodynamic instability. Subsequent angiography demonstrated MATTIE-3 flow distally. Via the QuickCross microcatheter, the Viper wire was exchanged for a long BMW
workhorse wire. Further lesion preparation was performed with serial inflation of a 2.0 x 12 mm semicompliant balloon followed by a 2.5 x 12 mm noncompliant balloon with full expansion. IVUS was performed and demonstrated a 3.25 mm proximal
reference vessel diameter. The IVUS catheter would not advance distally in the vessel past an area of concentric calcification. Further lesion preparation was then performed with a 3.25 x 12 mm NC balloon taken to 16 diamante with full expansion
everywhere including the calcified segment. Deliver of the 3.25 mm NC was challenging initially but facilitated eventually by use of a Wiggle wire. Stenting was performed with a 3.0 x 26 mm [place] frontier drug-eluting stent deployed at 16 diamante
followed by post dilation with a 3.25 x 12 mm NC balloon throughout to high pressure. IVUS was performed demonstrating full stent expansion and apposition and no edge dissection. There was noted to be mild-moderate ISR in the distal previously
placed stent however given that this was not the region responsible for the patient's NSTEMI and disease did not appear angiographically obstructive the decision was made to defer further treatment of this segment of ISR. Final angiographic result
was outstanding. The wire and guide were removed and a TR band placed. The patient was loaded with 300 mg of Plavix and taken to the cath recovery unit.
RADIATION: dose 572 mGy; DAP 46 Gy*cm2; fluoroscopy time 33.1 min
CONCLUSIONS
1. coronary angiography demonstrates patent prior LAD stent and high grade calcific disease in the mid-LCx
2. successful IVUS-guided PCI of the mid-LCx with orbital atherectomy and stenting with a 3.0x26 mm Dionisio Douglas KUMAR post-dilated to 3.25 mm
RECOMMENDATIONS
1. expectant management after cardiac catheterization via left distal radial approach
2. continue DAPT with ASA/Plavix for 1 year
3. aggressive secondary prevention of coronary artery disease
Copy to: Dr. Jese Askew MD (referring manager community outreach); Dr. Brenton Billy MD (manager community outreach); Dr. Janice Ortega MD (PCP)
Signed: Low Brower MD, PhD
--- NOTE | 2024-08-20 16:09 | W.PN.UPDATE ---
Update Note
Progress Note Update
79 yo WF s/p arthrectomy and PCI LCx x1 (same day). She denies cp, sob, lisa diet, EKG SR with PVC's, Left snuffbox site c/d/i. She will be on DAPT ASA/Plavix. Cardiac rehab c/s. Activity restrictions reviewed. She will f/u Dr. Billy in 2-4 weeks.
She is for d/c home after 630p if site stable.
--- NOTE | 2024-08-20 18:25 | PTCARENOTE ---
Rec'd pt from labeler. L radial band removed. Gauze and tegaderm applied; c/d/i. Oriented pt to room. Tele- SR 70s. BP 115/59. POX 100% on RA. Currently in bed; call charlee w/in reach.
--- NOTE | 2024-08-20 20:00 | PTCARENOTE ---
assumed care of patient @ 1900. received pt laying in bed, Aox3. VSS on RA. SR on tele with occasional AV pacing. Lungs clear on room air. Colostomy and nephrostomy present. L radial cath site on top of hand CDI. L heel ulcer wrapped up by
woundcare. pt requesting purewick, placed to help with leakage. resting comfortably in bed with call deshpande within reach . Pharmacy called about Nitrofuirtoin which was unverfied. Pharmacy stated they would contact the physician, kidney clearance may
not be high enough for drug. Pt resting comfortably in bed with call deshpande within reach . See flowsheet for detailed assessment and interventions .
[2024-08-20] MEDS: NEURONTIN 100 MG PO (21:32)
[2024-08-20] MEDS: ZESTRIL 20 MG PO (21:32)
[2024-08-20] MEDS: LIPITOR 80 MG PO (21:32)
[2024-08-20] MEDS: ZETIA 10 MG PO (21:33)
[2024-08-21 03:33] VITALS: BP 105/56
[2024-08-21 04:25] LABS: Hematocrit 28.6 % (37.0-47.0); Hemoglobin 9.3 g/dL (12.0-16.0); Mean Corp Hgb Conc. 32.5 g/dL (33.0-37.0); Mean Corpuscular Hgb 27.4 pg (27.0-31.0); Mean Corpuscular Volume 84.4 fL (81.0-99.0); Mean Platelet Volume 9.4 fL (7.4-10.4); Platelet Count 81 10^3/uL (130-400); Red Blood Cell Count 3.39 10^6/uL (4.20-5.40); Red Cell Dist. Width 15.3 % (11.5-14.5); White Blood Cell Count 5.9 10^3/uL (4.8-10.8)
[2024-08-21 04:48] LABS: Blood Urea Nitrogen 36 mg/dl (7-17); Calcium 8.7 mg/dl (8.4-10.2); Carbon Dioxide 28 mmol/L (22-30); Chloride 99 mmol/L (98-107); Estimated Creatinine Clearance 34 ml/min; Glucose 95 mg/dl (70-99); Potassium 3.8 mmol/L (3.5-5.1); Sodium 136 mmol/L (135-145); eGFR 42.09
[2024-08-21 07:14] VITALS: BMI 21.5
[2024-08-21 07:17] VITALS: BP 109/57
--- NOTE | 2024-08-21 08:33 | W.PN.CARDCBS ---
Addendum entered and electronically signed by Tl De León MD 08/21/24 10:24:
I saw and examined the patient.
The BURLAP SPREADER's note was reviewed and I agree with the note.
Comment: She is feeling great without cp or sob. RRR normal s1/s2, lungs cta. Radial site well healed no hematoma. CAD: s/p PCI Lcx, continue DAPT. Stressed the importance of compliance without missing any doses. Continue statin. CKD with
improved creatinine continue to monitor over time. Continue multidrug therapy for hypertension.
Original Note:
Today's Communication / Plan
-
DAPT w/asa, plavix
cardiac rehab
followup w/Dr. Billy
home today
Impression / Plan
-
PCP: Janice Ortega MD
CDY: Brenton Billy MD
79 y/o, PMH sig for NSTEMI 05/2024 with concurrent sepsis r/t UTI/Pyelonephritis for which a left nephrostomy tube was placed as well as a nephrostomy tube. She underwent LHC on 06/11 and had LAD KUMAR x1 and Diagonal 2 overlapping KUMAR, complicated
with dissection. Residual 90% calcified LCx lesion intervention was delayed to allow full healing of dissection, with plans for staged intervention in 4 weeks. She is on DAPT w/asa, plavix.
Presented to construction laborer yesterday, now s/p mid LCx orbital atherectomy with angioplasty and stenting w/KUMAR.
IMPRESSION/PLAN:
CAD/NSTEMI w/LAD KUMAR/Diag DESx2 (06/2024)
residual cad mid LCx- s/p orbital atherectomy w/KUMAR, 08/20/24
left radial snuffbox site stable
tele- SNR w/frequent PVCs
continue uninterrupted DAPT w/asa, plavix
cardiac rehab consulted
followup w/Dr. Billy as scheduled
home today
CKD3b- creat stable post dye load, 1.3/GFR 42 this morning
HTN- good BP control on current therapy
continue lisinpril, metoprolol, nifedipine, catapres
HLD- continue statin as before
Urosepsis w/UTI, pyelonephritis
urostomy tube in place draining CYU
Left side stent- planned for stent exchange/removal in September
pre med with nitrofurantoin, managed per urology (at [facility])
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
PPM implant (2022)
PAD, prior b/l femoral endarterectomies
R-L fem fem bypass (07/2023)
now with non healing wound to left foot- managed per wound care
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
colostomy intact
Progress Note - Fondant Cooker
Subjective
Date of Service: August 21, 2024
Denies cp/palps/dyspnea
oob ambulating
radial cath site without pain
Objective
Labs:
08/21/24 03:54
08/21/24 03:54
Labs
Hgb 9.3 g/dL (12.0-16.0) L 08/21/24 03:54
Hct 28.6 % (37.0-47.0) L 08/21/24 03:54
Plt Count 81 10^3/uL (130-400) L D 08/21/24 03:54
Sodium 136 mmol/L (135-145) 08/21/24 03:54
Potassium 3.8 mmol/L (3.5-5.1) 08/21/24 03:54
BUN 36 mg/dl (7-17) H 08/21/24 03:54
Creatinine 1.3 mg/dL (0.6-1.0) H 08/21/24 03:54
Glucose 95 mg/dl (70-99) 08/21/24 03:54
Vital Signs and I&O:
Vital Signs
Temp Pulse Resp BP Pulse Ox
98.0 F 73 16 109/57 98
08/21/24 07:14 08/21/24 08:15 08/21/24 07:14 08/21/24 07:17 08/21/24 07:14
Vital Signs
Temp Pulse Resp BP Pulse Ox
98.0 F 73 16 109/57 98
08/21/24 07:14 08/21/24 08:15 08/21/24 07:14 08/21/24 07:17 08/21/24 07:14
Intake & Output
08/19/24 08/20/24 08/21/24 08/22/24
06:59 06:59 06:59 06:59
Intake Total 1425 / 1425
Output Total 1600 / 1600
Balance -175 / -175
Physical Exam
Physical Exam
AAOx3, MAEE 5/5
RRR S1 S2 no murmurs
CTA bilat, non labored
soft abd, + bs
left sided colostomy bag intact w/normal amout brown stool
nephrostomy tube to bag intact draining clear yellow urine
left radial cath site without ht/bleeding
left foot w/dressing CDI, palpable pulses bilaterally without edema
[2024-08-21 08:41] VITALS: BP 105/55
[2024-08-21] MEDS: ASPIR LOW (ENTERIC COATED) 81 MG PO (08:41)
[2024-08-21] MEDS: PROCARDIA XL (EXTENDED RELEASE) 30 MG PO (08:41)
[2024-08-21] MEDS: TOPROL XL 50 MG PO (08:41)
[2024-08-21] MEDS: PLAVIX 75 MG PO (08:41)
--- NOTE | 2024-08-21 10:49 | CM ---
Chart reviewed. Patient is independent of ADLS, [facility] [address], ambulates with a RW, rollator and also has an extra RW and SPC. Patient is current with [facility]. Plan is for the patient to return home with
[facility]. CM to follow
--- NOTE | 2024-08-21 11:07 | W.DS.TRANS ---
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
-
Discharge Instructions:
Discharge Diagnosis/Procedures Atherectomy with angioplasty and stent x1 to
Left Circumflex artery
Diet Low Cholesterol
Driving Restrictions No driving for 24 hours
Other Services Cardiac Rehab
Instructions:
Stand-Alone Forms: DC Inst - Same Day PCI
Changes to Home Medications: No
Discharge Medications:
DC Medications w/original date entered in [employer]
aspirin 81 mg tablet,delayed release 81 mg PO DAILY Blood Clot Prevention/Tx 06/05/24
atorvastatin 80 mg tablet 80 mg PO HS High Cholesterol 06/05/24
clonidine 0.2 mg/24 hr weekly transdermal patch ([id number]) 0.2 mg transdermal WE Blood Pressure 06/05/24
collagenase clostridium histo. 250 unit/gram topical ointment (Santyl) 1 applic topical DAILY left heel wound 06/05/24
gabapentin 100 mg capsule (Neurontin) 100 mg PO HS Pain 06/05/24
nifedipine 30 mg tablet,extended release 24 hr (Procardia XL) 30 mg PO DAILY Blood Pressure 06/05/24
clopidogrel 75 mg tablet 75 mg PO DAILY Heart disease/condition #30 tabs 06/11/24
metoprolol succinate 50 mg tablet,extended release 24 hr 50 mg PO DAILY Blood pressure #30 tabs 06/11/24
ascorbic acid (vitamin C) 100 mg tablet (Vitamin C) 100 mg PO DAILY 08/20/24
cyanocobalamin (vitamin B-12) 25 mcg tablet 25 mcg PO DAILY 08/20/24
ezetimibe 10 mg tablet 10 mg PO HS High cholesterol 08/20/24
ibuprofen 200 mg capsule 200 mg PO Q6H PRN colostomy bag site with changes 08/20/24
lisinopril 20 mg tablet 20 mg PO HS Blood pressure 08/20/24
nitrofurantoin macrocrystal 100 mg capsule 100 mg PO BID 08/21/24
Home Medication Changes
Pending Results: No
--- NOTE | 2024-08-21 12:12 | PTCARENOTE ---
IV and tele removed. Discharge instructions reviewed w/ pt. Verbalizes understanding. Belongings collected and sent w/ pt. Escorted via WC and staff assist. Discharged to home w/ daughter.
== END 2024-08-21 12:12 | disposition home or self-care (01) ==
LOC: CATH 09:12
PROVIDERS: ATTENDING PHYSICIAN Student in an Organized Health Care Education/Training Program; FAMILY PHYSICIAN Internal Medicine; OTHER PHYSICIAN Internal Medicine Cardiovascular Disease
DX: I25.10 Atherosclerotic heart disease of native coronary artery without angina pectoris (principal); I25.84 Coronary atherosclerosis due to calcified coronary lesion; Z79.02 Long term (current) use of antithrombotics/antiplatelets; Z79.82 Long term (current) use of aspirin; Z79.899 Other long term (current) drug therapy; Z95.5 Presence of coronary angioplasty implant and graft; I25.2 Old myocardial infarction; I10 Essential (primary) hypertension; E78.5 Hyperlipidemia, unspecified
CPT/HCPCS: 92978; 99152; 99153; 76937; 80048; 80053; 85027; 85347; 93005; 93458; C1724; C1725; C1753; C1769; C1874; C1887; C1894; C9602; Q9967